=== PATIENT | female | born 1975 | race Two or more races ===

== ENCOUNTER 2020-07-19 19:25 | Inpatient (IN) | payer MEDICAID ==
[~2020-07-19] VITALS: Ht 172.7 cm; Wt 104.0 kg
[2020-07-19 21:29] LABS: Hematocrit 50.6 % (36.0-46.0); Hemoglobin 15.2 g/dL (12.2-16.2); Mean Corpuscular Hemoglobin 29.9 pg (28.0-32.0); Mean Corpuscular Hgb Conc. 30.1 g/dL (32.0-36.0); Mean Corpuscular Volume 99.2 fL (80.0-100.0); Red Cell Distribution Width 20.4 % (11.8-14.3); White Blood Cell 10.5 10^3/uL (4.4-10.8)
[2020-07-19 21:31] LABS: Basophils % (manual) 0 (0.0-2.0); Blast Cells 0; Eosinophils % (manual) 0 (0-7); Metamyelocytes % 0; Myelocytes % 0; Promyelocytes % 0; Reactive Lymphocytes 0
[2020-07-19 21:36] LABS: INR 1.75 (0.9-1.15)
[2020-07-19 21:39] LABS: Albumin 3.1 g/dL (3.4-5.0); Calcium 7.5 mg/dL (8.5-10.1); Magnesium 1.6 mg/dL (1.6-2.6)
[2020-07-19 21:46] LABS: BUN/Creatinine Ratio 12.2; Bilirubin, Total 2.2 mg/dL (0.2-1.0); Total Protein 7.6 g/dL (6.4-8.2)
[2020-07-19 21:49] LABS: Potassium 6.3 mmol/L (3.5-5.1)
[2020-07-19 22:06] LABS: Band Neutrophils % (manual) 1; Lymphocytes % (manual) 13 (10.0-50.0); Monocytes % (manual) 4 (0-12)
[2020-07-19] MEDS ORDERED: CALCIUM GLUC 1,000mg/50ml-NS 50 ML IV ONE (22:15)
[2020-07-19] MEDS ORDERED: SODIUM ZIRCONIUM CYCL 10 GM PAK PO ONE (22:15)
[2020-07-19] MEDS ORDERED: DEXTROSE (50%) 50ML SYRG IV ONE (22:15)
[2020-07-19] MEDS ORDERED: InsuLIN REG 1unit/0.01ml Soln (100units/ml) IV ONE (22:15)
[2020-07-19] MEDS ORDERED: SODIUM BICARBONATE 8.4% INJ 50ML SYRINGE IV ONE (22:15)
[2020-07-19] MEDS ORDERED: FUROSEMIDE 40 MG/4 ML VIAL IV ONE (22:15)
[2020-07-19] MEDS ORDERED: ASPirin 325 MG TAB PO ONE (22:30)
[2020-07-20] VITALS (7 sets, daily range): BP systolic 117–138; BP diastolic 67–104
[2020-07-20 00:02] LABS: Urine Amorphous Crystal FEW /hpf (None Seen); Urine Bacteria MOD /hpf (None Seen); Urine Blood Negative /uL (Negative); Urine Hyaline Cast MANY /lpf (0 - 2); Urine Mucus FEW (None Seen); Urine Specific Gravity 1.015 (1.001-1.035); Urine WBC 6 /hpf (0 - 5)
[2020-07-20] MEDS ORDERED: NITROGLYCERIN 0.4 MG SL TAB SL PRN (00:45)
[2020-07-20] MEDS ORDERED: MORPHINE SULFATE 4 MG/ML SYR/VIAL IV PRN (00:45)
[2020-07-20] MEDS ORDERED: ONDANSETRON HCL 4 MG/2 ML VIAL IV PRN (00:45)
[2020-07-20] MEDS ORDERED: DEXTROSE (50%) 50ML SYRG IV PRN (00:45)
[2020-07-20] MEDS ORDERED: ACETAMINOPHEN 325 MG TAB PO PRN (00:45)
[2020-07-20] MEDS ORDERED: METF-370 PO (02:33)
[2020-07-20] MEDS ORDERED: AMPI500C8 PO (02:34)
[2020-07-20] MEDS ORDERED: ATOR20TA50 PO (02:35)
[2020-07-20] MEDS ORDERED: CHOL20007 OR (02:36)
[2020-07-20] MEDS: ACCU-CHEK COMFORT CURVE STRIP VI SCH ×4 (06:11→21:41)
[2020-07-20] MEDS: InsuLIN REG 1unit/0.01ml Soln (100units/ml) SC SCH ×2 (06:14→12:49)
[2020-07-20] MEDS: FUROSEMIDE 40 MG/4 ML VIAL IV SCH (09:44)
[2020-07-20] MEDS: ENOXAPARIN SOD 60 MG/0.6 ML SYRINGE SC SCH ×2 (09:45→21:41)
[2020-07-20] MEDS: ASPirin 81 mg TAB PO SCH (09:45)
[2020-07-20] MEDS: DOCUSATE SOD 100 MG CAP PO SCH (09:45)
[2020-07-20] MEDS: METOPROLOL TARTRATE 25 MG TAB PO SCH ×2 (09:46→21:43)
[2020-07-20] MEDS: CLOPIDOGREL BISULFATE 75 MG TAB PO SCH (09:47)
[2020-07-20] MEDS ORDERED: ENALAPRIL MALEATE 2.5 MG TAB PO SCH (10:00)
[2020-07-20] MEDS ORDERED: ENOXAPARIN SOD 60 MG/0.6 ML SYRINGE SC SCH (10:00)
[2020-07-20] MEDS: SODIUM BICARBONATE 50ML VIAL 50 ML in SOD CHL 0.45% 1,000 ML IV SCH ×2 (13:19→23:29)
[2020-07-20] MEDS ORDERED: OMNIPAQUE ORAL SOLN 500ml 12mg/ml PO ONE (13:26)
[2020-07-20] MEDS: INSULIN LISPRO (HUMAN) 100 UNITS/ML ML SC SCH (17:00)
[2020-07-20] MEDS: ATORVASTATIN 20 MG TAB PO SCH (21:41)
[2020-07-20] MEDS: INSULIN LANTUS (GLARGINE) 1 /0.01ml (100units/ml) SC SCH (21:41)
[2020-07-21 05:00] VITALS: BP 141/93
[2020-07-21] MEDS: INSULIN LISPRO (HUMAN) 100 UNITS/ML ML SC SCH ×3 (06:27→18:01)
[2020-07-21] MEDS: ACCU-CHEK COMFORT CURVE STRIP VI SCH ×4 (06:27→22:14)
[2020-07-21 07:24] LABS: Basophils # (auto) 0.1 10 ^3/uL (0-0.2); Basophils % (auto) 1.1 % (0.0-2.0); Eosinophils # (auto) 0.1 10 ^3/uL (0-0.8); Hematocrit 39.3 % (36.0-46.0); Hemoglobin 12.8 g/dL (12.2-16.2); Lymphocytes # (auto) 1.3 10 ^3/uL (0.4-5.4); Lymphocytes % (auto) 20.9 % (10.0-50.0); Mean Corpuscular Hemoglobin 29.2 pg (28.0-32.0); Mean Corpuscular Hgb Conc. 32.6 g/dL (32.0-36.0); Mean Corpuscular Volume 89.5 fL (80.0-100.0); Monocytes # (auto) 0.4 10 ^3/uL (0-1.3); Neutrophils # (auto) 4.3 10 ^3/uL (1.6-8.6); Nucleated Red Blood Cells % 0.6 %; Red Blood Cells 4.39 10^6/uL (4.0-5.20); Red Cell Distribution Width 18.8 % (11.8-14.3); White Blood Cell 6.2 10^3/uL (4.4-10.8)
[2020-07-21 07:38] LABS: Calcium 7.9 mg/dL (8.5-10.1); Magnesium 1.3 mg/dL (1.6-2.6)
[2020-07-21 07:45] LABS: BUN/Creatinine Ratio 19.6
[2020-07-21 07:51] LABS: INR 1.46 (0.9-1.15); Partial Thromboplastin Time 28.1 sec (23.0-31.2)
[2020-07-21 08:09] LABS: Potassium 2.9 mmol/L (3.5-5.1)
[2020-07-21 08:26] VITALS: BP 138/99
[2020-07-21] MEDS ORDERED: POTASSIUM CHL 20 Meq TABLET PO ONE (08:45)
[2020-07-21] MEDS ORDERED: POTASSIUM CHL 20MEQ/100ML 100 ML IV ONE (08:45)
[2020-07-21 09:00] VITALS: BP 155/103
[2020-07-21] MEDS: METOPROLOL TARTRATE 25 MG TAB PO SCH ×2 (09:48→22:14)
[2020-07-21] MEDS: CLOPIDOGREL BISULFATE 75 MG TAB PO SCH (09:48)
[2020-07-21] MEDS: ENOXAPARIN SOD 60 MG/0.6 ML SYRINGE SC SCH ×2 (09:48→22:14)
[2020-07-21] MEDS: FUROSEMIDE 40 MG/4 ML VIAL IV SCH (09:49)
[2020-07-21] MEDS: ASPirin 81 mg TAB PO SCH (09:49)
[2020-07-21] MEDS: DOCUSATE SOD 100 MG CAP PO SCH (09:49)
[2020-07-21] MEDS ORDERED: OPTISON 3ml Vial for INJ IV ONE (09:56)
[2020-07-21] MEDS: SODIUM BICARBONATE 50ML VIAL 50 ML in SOD CHL 0.45% 1,000 ML IV SCH (12:22)
[2020-07-21 13:00] VITALS: BP 150/105
[2020-07-21 17:43] VITALS: BP 161/115
[2020-07-21 22:00] VITALS: BP 143/99
[2020-07-21] MEDS: INSULIN LANTUS (GLARGINE) 1 /0.01ml (100units/ml) SC SCH (22:14)
[2020-07-21] MEDS: ATORVASTATIN 20 MG TAB PO SCH (22:14)
[2020-07-21] MEDS: ZOLPIDEM TARTRATE 5 MG TAB PO PRN (22:30)
[2020-07-22] MEDS: hydrALAZINE HCL 20 MG/ML VL IV PRN ×2 (04:57→17:34)
[2020-07-22 05:00] VITALS: BP 166/110
[2020-07-22 06:20] LABS: Basophils # (auto) 0.1 10 ^3/uL (0-0.2); Basophils % (auto) 1.1 % (0.0-2.0); Eosinophils # (auto) 0.1 10 ^3/uL (0-0.8); Eosinophils % (auto) 1.4 % (0.0-7.0); Hematocrit 40.8 % (36.0-46.0); Hemoglobin 13.4 g/dL (12.2-16.2); Lymphocytes # (auto) 1.3 10 ^3/uL (0.4-5.4); Lymphocytes % (auto) 23.2 % (10.0-50.0); Mean Corpuscular Hemoglobin 29.5 pg (28.0-32.0); Mean Corpuscular Hgb Conc. 32.7 g/dL (32.0-36.0); Mean Corpuscular Volume 90.2 fL (80.0-100.0); Monocytes # (auto) 0.4 10 ^3/uL (0-1.3); Monocytes % (auto) 7.3 % (0.0-12.0); Neutrophils # (auto) 3.8 10 ^3/uL (1.6-8.6); Nucleated Red Blood Cells % 0.8 %; Red Blood Cells 4.53 10^6/uL (4.0-5.20); Red Cell Distribution Width 19.2 % (11.8-14.3); White Blood Cell 5.6 10^3/uL (4.4-10.8)
[2020-07-22 06:38] LABS: Calcium 8.1 mg/dL (8.5-10.1); Potassium 3.1 mmol/L (3.5-5.1)
[2020-07-22 06:39] LABS: BUN/Creatinine Ratio 18.7
[2020-07-22] MEDS: ACCU-CHEK COMFORT CURVE STRIP VI SCH ×4 (07:00→22:01)
[2020-07-22] MEDS: INSULIN LISPRO (HUMAN) 100 UNITS/ML ML SC SCH ×3 (07:01→17:51)
[2020-07-22 08:41] VITALS: BP 153/108
[2020-07-22] MEDS: ASPirin 81 mg TAB PO SCH (09:39)
[2020-07-22] MEDS: FUROSEMIDE 40 MG/4 ML VIAL IV SCH (09:39)
[2020-07-22] MEDS: DOCUSATE SOD 100 MG CAP PO SCH (09:39)
[2020-07-22] MEDS: ENOXAPARIN SOD 60 MG/0.6 ML SYRINGE SC SCH (09:40)
[2020-07-22] MEDS: CLOPIDOGREL BISULFATE 75 MG TAB PO SCH (09:40)
[2020-07-22] MEDS: METOPROLOL TARTRATE 25 MG TAB PO SCH ×2 (09:40→22:09)
[2020-07-22] MEDS ORDERED: ENOXAPARIN SOD 40 MG/0.4 ML SYRINGE SC ONE (11:45)
[2020-07-22 13:11] VITALS: BP 163/111
[2020-07-22 16:39] VITALS: BP 156/115
[2020-07-22] MEDS: LORazepam 0.5 MG TAB PO PRN (17:54)
[2020-07-22 22:00] VITALS: BP 166/107
[2020-07-22] MEDS: ENOXAPARIN SOD 100 MG/1 ML SYRINGE SC SCH (22:08)
[2020-07-22] MEDS: ATORVASTATIN 20 MG TAB PO SCH (22:08)
[2020-07-22] MEDS: INSULIN LANTUS (GLARGINE) 1 /0.01ml (100units/ml) SC SCH (22:10)
[2020-07-22] MEDS: ZOLPIDEM TARTRATE 5 MG TAB PO PRN (22:11)
[2020-07-23 05:00] VITALS: BP 149/106
[2020-07-23] MEDS: ACCU-CHEK COMFORT CURVE STRIP VI SCH ×4 (06:21→22:00)
[2020-07-23] MEDS: INSULIN LISPRO (HUMAN) 100 UNITS/ML ML SC SCH ×3 (06:26→17:34)
[2020-07-23 09:00] VITALS: BP 167/118
[2020-07-23] MEDS: ENOXAPARIN SOD 100 MG/1 ML SYRINGE SC SCH ×2 (09:39→21:41)
[2020-07-23] MEDS: ASPirin 81 mg TAB PO SCH (09:39)
[2020-07-23] MEDS: FUROSEMIDE 40 MG/4 ML VIAL IV SCH (09:39)
[2020-07-23] MEDS: DOCUSATE SOD 100 MG CAP PO SCH (09:39)
[2020-07-23] MEDS: METOPROLOL TARTRATE 25 MG TAB PO SCH ×2 (09:39→21:41)
[2020-07-23] MEDS: hydrALAZINE HCL 20 MG/ML VL IV PRN (09:40)
[2020-07-23 13:00] VITALS: BP 137/86
[2020-07-23] MEDS ORDERED: POTASSIUM CHL 20 Meq TABLET PO ONE (15:30)
[2020-07-23 16:36] LABS: BUN/Creatinine Ratio 16.7; Calcium 8.1 mg/dL (8.5-10.1); Potassium 3.2 mmol/L (3.5-5.1)
[2020-07-23 17:00] VITALS: BP 135/98
[2020-07-23] MEDS: amLODIPine BESYLATE 5 MG TAB PO SCH (17:35)
[2020-07-23] MEDS: ATORVASTATIN 20 MG TAB PO SCH (21:39)
[2020-07-23] MEDS: ZOLPIDEM TARTRATE 5 MG TAB PO PRN (21:42)
[2020-07-23 22:00] VITALS: BP 158/110
[2020-07-23] MEDS: INSULIN LANTUS (GLARGINE) 1 /0.01ml (100units/ml) SC SCH (22:02)
[2020-07-23] MEDS: LORazepam 0.5 MG TAB PO PRN (23:28)
[2020-07-24 05:00] VITALS: BP 154/112
[2020-07-24] MEDS: ACCU-CHEK COMFORT CURVE STRIP VI SCH ×3 (06:13→17:00)
[2020-07-24] MEDS: INSULIN LISPRO (HUMAN) 100 UNITS/ML ML SC SCH ×3 (06:15→19:00)
[2020-07-24] MEDS: hydrALAZINE HCL 20 MG/ML VL IV PRN (06:17)
[2020-07-24 07:13] LABS: Basophils # (auto) 0.1 10 ^3/uL (0-0.2); Basophils % (auto) 1.5 % (0.0-2.0); Eosinophils # (auto) 0.1 10 ^3/uL (0-0.8); Eosinophils % (auto) 1.3 % (0.0-7.0); Hematocrit 41.7 % (36.0-46.0); Hemoglobin 13.5 g/dL (12.2-16.2); Lymphocytes # (auto) 1.5 10 ^3/uL (0.4-5.4); Lymphocytes % (auto) 23.7 % (10.0-50.0); Mean Corpuscular Hemoglobin 28.6 pg (28.0-32.0); Mean Corpuscular Hgb Conc. 32.5 g/dL (32.0-36.0); Mean Corpuscular Volume 88.1 fL (80.0-100.0); Monocytes # (auto) 0.5 10 ^3/uL (0-1.3); Neutrophils % (auto) 65.5 % (37.0-80.0); Nucleated Red Blood Cells % 0.2 %; Red Blood Cells 4.73 10^6/uL (4.0-5.20); Red Cell Distribution Width 18.8 % (11.8-14.3); White Blood Cell 6.2 10^3/uL (4.4-10.8)
[2020-07-24 07:26] LABS: INR 1.33 (0.9-1.15); Partial Thromboplastin Time 29.8 sec (23.0-31.2)
[2020-07-24 07:44] LABS: BUN/Creatinine Ratio 22.4; Calcium 7.9 mg/dL (8.5-10.1); Potassium 3.4 mmol/L (3.5-5.1)
[2020-07-24 08:10] VITALS: BP 156/101
[2020-07-24 08:50] VITALS: BP 151/100
[2020-07-24] MEDS ORDERED: LIDOCAINE 2%HCL (LOCAL ANESTH.) INJ 20ML MDV ONE (09:54)
[2020-07-24] MEDS ORDERED: IODIXANOL 320MG/ML 100ML BTL IV ONE (09:54)
[2020-07-24] MEDS ORDERED: ANGIOMAX 250 MG VIAL IV ONE (10:16)
[2020-07-24] MEDS ORDERED: HEPARIN SODIUM (PORCINE) 5000 UNITS/ML 1ML VIAL ONE (10:16)
[2020-07-24] MEDS ORDERED: VERAPAMIL 2.5MG/ML INJ 2ML VIAL IV ONE (10:16)
[2020-07-24] MEDS ORDERED: fentaNYL CITRATE 100 MCG/2 ML VL ONE (10:16)
[2020-07-24] MEDS ORDERED: SODIUM CHL 0.9% 0 ML ONE (10:17)
[2020-07-24] MEDS ORDERED: MIDAZOLAM HCL 2MG/2ML 2ml VIAL (1mg/ml) ONE (10:17)
[2020-07-24] MEDS: FUROSEMIDE 40 MG/4 ML VIAL IV SCH (12:15)
[2020-07-24] MEDS: DOCUSATE SOD 100 MG CAP PO SCH (12:15)
[2020-07-24] MEDS: METOPROLOL TARTRATE 25 MG TAB PO SCH (12:15)
[2020-07-24] MEDS: ASPirin 81 mg TAB PO SCH (12:15)
[2020-07-24 12:30] VITALS: BP 143/102
[2020-07-24] MEDS ORDERED: INSU100I43 SC (16:56)
[2020-07-24] MEDS ORDERED: ASPI1CHW15 PO (16:56)
[2020-07-24] MEDS ORDERED: MET25T PO (16:56)
[2020-07-24] MEDS ORDERED: INSLANTI SC (16:56)
[2020-07-24] MEDS ORDERED: SPIR25TA PO (16:56)
[2020-07-24 17:00] VITALS: BP 149/113
[2020-07-24 17:33] VITALS: BP 149/113
[2020-07-24] MEDS: amLODIPine BESYLATE 5 MG TAB PO SCH (19:04)
[2020-07-27] MEDS ORDERED: APIX5TAB PO (10:02)
== END 2020-07-24 19:06 | disposition home or self-care (01) | DRG 192 ==
LOC: EDBD 19:25 → EDSEX 19:31 → ER 19:31 → TELE 07-20 00:32 → TELE-EAST 07-20 01:45
PROVIDERS: ADMIT Hospitalist; ATTEND Hospitalist
PROC: 4A023N7 Measurement of Cardiac Sampling and Pressure, Left Heart, Percutaneous Approach (ICD-10-PCS; principal; 2020-07-24)
PROC: B211YZZ Fluoroscopy of Multiple Coronary Arteries using Other Contrast (ICD-10-PCS; 2020-07-24)
DX: I13.0 Hypertensive heart and chronic kidney disease with heart failure and stage 1 through stage 4 chronic kidney disease, or unspecified chronic kidney disease (principal); I21.4 Non-ST elevation (NSTEMI) myocardial infarction; N17.0 Acute kidney failure with tubular necrosis; I50.21 Acute systolic (congestive) heart failure; E87.5 Hyperkalemia; E66.01 Morbid (severe) obesity due to excess calories; K21.9 Gastro-esophageal reflux disease without esophagitis; N18.31 Chronic kidney disease, stage 3a; E10.22 Type 1 diabetes mellitus with diabetic chronic kidney disease; E10.65 Type 1 diabetes mellitus with hyperglycemia; E78.5 Hyperlipidemia, unspecified; Z82.49 Family history of ischemic heart disease and other diseases of the circulatory system; Z87.440 Personal history of urinary (tract) infections; Z83.3 Family history of diabetes mellitus; Z68.34 Body mass index [BMI] 34.0-34.9, adult; Z20.822 Contact with and (suspected) exposure to COVID-19; Z88.0 Allergy status to penicillin
CPT/HCPCS: 36415; 71045; 71250; 74176; 76775; 78582; 80048; 80053; 80061; 81001; 81025; 82962; 83036; 83735; 83880; 84132; 84484; 85007; 85025; 85027; 85610; 85730; 86850; 86900; 86901; 87426; 93005; 93306; 93458; 93970; 96365; 96375; 99152; G0378; J1815; J2250; J3480; Q9956; Q9967

== ENCOUNTER 2020-09-04 21:24 | Inpatient (IN) | payer MEDICAID ==
[~2020-09-04] VITALS: Ht 172.7 cm; Wt 94.7 kg
[~2020-09-04 21:24] MED LIST: APIX5TAB PO; ASPI1CHW15 PO; ATOR20TA50 PO; CHOL20007 OR; INSLANTI SC; INSU100I43 SC; MET25T PO; METF-370 PO; SPIR25TA PO
[2020-09-04 22:27] LABS: Basophils # (auto) 0.1 10 ^3/uL (0-0.2); Eosinophils # (auto) 0 10 ^3/uL (0-0.8); Eosinophils % (auto) 0.5 % (0.0-7.0); Hematocrit 48.4 % (36.0-46.0); Hemoglobin 16.2 g/dL (12.2-16.2); Lymphocytes # (auto) 1.3 10 ^3/uL (0.4-5.4); Lymphocytes % (auto) 15.9 % (10.0-50.0); Mean Corpuscular Hemoglobin 29.2 pg (28.0-32.0); Mean Corpuscular Hgb Conc. 33.4 g/dL (32.0-36.0); Mean Corpuscular Volume 87.6 fL (80.0-100.0); Monocytes # (auto) 0.4 10 ^3/uL (0-1.3); Neutrophils # (auto) 6.2 10 ^3/uL (1.6-8.6); Neutrophils % (auto) 77.6 % (37.0-80.0); Nucleated Red Blood Cells % 0.1 %; Red Blood Cells 5.52 10^6/uL (4.0-5.20); Red Cell Distribution Width 18.5 % (11.8-14.3)
[2020-09-04 22:46] LABS: Albumin 3.2 g/dL (3.4-5.0); Calcium 9.6 mg/dL (8.5-10.1); Potassium 4.6 mmol/L (3.5-5.1)
[2020-09-04 22:51] LABS: BUN/Creatinine Ratio 15.4; Bilirubin, Total 1.9 mg/dL (0.2-1.0); Total Protein 8.2 g/dL (6.4-8.2)
[2020-09-05] MEDS ORDERED: FUROSEMIDE 40 MG/4 ML VIAL IV ONE (00:30)
[2020-09-05] MEDS ORDERED: MORPHINE SULFATE INJECTION 2 MG/ML SYRG IV ONE (01:00)
[2020-09-05] MEDS ORDERED: ONDANSETRON HCL 4 MG/2 ML VIAL IV ONE (01:00)
[2020-09-05 01:48] LABS: Urine Bacteria NONE SEEN /hpf (None Seen); Urine Blood Negative /uL (Negative); Urine Hyaline Cast MOD /lpf (0 - 2); Urine Specific Gravity 1.014 (1.001-1.035); Urine WBC 20 /hpf (0 - 5)
[2020-09-05] MEDS ORDERED: cefTRIAXone 1GM/50ML D5W 50 ML IV ONE (03:00)
[2020-09-05] MEDS ORDERED: DEXTROSE (50%) 50ML SYRG IV PRN (04:00)
[2020-09-05] MEDS ORDERED: NITROGLYCERIN 0.4 MG SL TAB SL PRN (04:00)
[2020-09-05] MEDS ORDERED: MORPHINE SULFATE INJECTION 2 MG/ML SYRG IV PRN (04:00)
[2020-09-05] MEDS ORDERED: hydrALAZINE HCL 20 MG/ML VL IV PRN (06:15)
[2020-09-05] MEDS: MORPHINE SULFATE INJECTION 2 MG/ML SYRG IV PRN ×3 (06:30→22:30)
[2020-09-05 06:43] LABS: Basophils # (auto) 0.1 10 ^3/uL (0-0.2); Basophils % (auto) 1.3 % (0.0-2.0); Eosinophils # (auto) 0.1 10 ^3/uL (0-0.8); Eosinophils % (auto) 0.9 % (0.0-7.0); Hematocrit 45.1 % (36.0-46.0); Hemoglobin 15.3 g/dL (12.2-16.2); Lymphocytes # (auto) 1.9 10 ^3/uL (0.4-5.4); Lymphocytes % (auto) 24.2 % (10.0-50.0); Mean Corpuscular Hemoglobin 29.3 pg (28.0-32.0); Mean Corpuscular Hgb Conc. 33.9 g/dL (32.0-36.0); Mean Corpuscular Volume 86.5 fL (80.0-100.0); Monocytes # (auto) 0.6 10 ^3/uL (0-1.3); Monocytes % (auto) 7.4 % (0.0-12.0); Neutrophils # (auto) 5.1 10 ^3/uL (1.6-8.6); Neutrophils % (auto) 66.2 % (37.0-80.0); Nucleated Red Blood Cells % 0.1 %; Red Blood Cells 5.21 10^6/uL (4.0-5.20); Red Cell Distribution Width 18.6 % (11.8-14.3); White Blood Cell 7.7 10^3/uL (4.4-10.8)
[2020-09-05] MEDS: ACCU-CHEK COMFORT CURVE STRIP VI SCH ×4 (07:00→21:29)
[2020-09-05] MEDS: InsuLIN REG 1unit/0.01ml Soln (100units/ml) SC SCH ×4 (07:40→21:30)
[2020-09-05] MEDS: INSULIN LANTUS (GLARGINE) 1 /0.01ml (100units/ml) SC SCH ×2 (07:50→17:30)
[2020-09-05 09:24] VITALS: BP 159/108
[2020-09-05] MEDS: SPIRONOLACTONE 25 MG TAB PO SCH (09:40)
[2020-09-05] MEDS: METOPROLOL TARTRATE 25 MG TAB PO SCH ×2 (09:40→21:31)
[2020-09-05] MEDS: ASPirin 81 mg TAB PO SCH (09:40)
[2020-09-05 10:14] LABS: BUN/Creatinine Ratio 15.3; Calcium 9.6 mg/dL (8.5-10.1)
[2020-09-05] MEDS ORDERED: diphenhdrAMINE HCL 50 MG/1 ML VL IV PRN (11:00)
[2020-09-05 12:13] LABS: Alcohol, Urine < 3.0 mg/dL (0-10); Barbiturate Scree,Urine NEGATIVE (NEGATIVE); Benzodiazephine Screen, Urine NEGATIVE (NEGATIVE); Cannabinoid Screen, Urine POSITIVE (NEGATIVE); Cocaine Screen, Urine NEGATIVE (NEGATIVE); Opiate Scree,Urine NEGATIVE (NEGATIVE); Phencyclidine Screen, Urine NEGATIVE (NEGATIVE)
[2020-09-05 12:21] LABS: Amphetamine Screen, Urine POSITIVE (NEGATIVE)
[2020-09-05 12:27] VITALS: BP 159/108
[2020-09-05 13:00] VITALS: BP 153/107
[2020-09-05 17:00] VITALS: BP 143/108
[2020-09-05] MEDS: ATORVASTATIN 20 MG TAB PO SCH (21:13)
[2020-09-05] MEDS: SODIUM BICARBONATE 650 MG TAB PO SCH (21:13)
[2020-09-05] MEDS: APIXABAN 5 MG TAB PO SCH (21:14)
[2020-09-05 22:00] VITALS: BP 143/102
[2020-09-05] MEDS ORDERED: ENOXAPARIN SOD 40 MG/0.4 ML SYRINGE SC SCH (22:00)
[2020-09-06] MEDS: MORPHINE SULFATE INJECTION 2 MG/ML SYRG IV PRN ×3 (03:35→12:35)
[2020-09-06 05:00] VITALS: BP 134/100
[2020-09-06] MEDS: ACCU-CHEK COMFORT CURVE STRIP VI SCH ×4 (06:20→22:03)
[2020-09-06] MEDS: INSULIN LANTUS (GLARGINE) 1 /0.01ml (100units/ml) SC SCH ×2 (06:22→17:17)
[2020-09-06] MEDS: InsuLIN REG 1unit/0.01ml Soln (100units/ml) SC SCH ×4 (06:23→22:04)
[2020-09-06] MEDS: ASPirin 81 mg TAB PO SCH (07:44)
[2020-09-06] MEDS: SODIUM BICARBONATE 650 MG TAB PO SCH ×2 (07:44→21:49)
[2020-09-06] MEDS: APIXABAN 5 MG TAB PO SCH ×2 (07:44→21:49)
[2020-09-06] MEDS: SPIRONOLACTONE 25 MG TAB PO SCH (07:45)
[2020-09-06 08:00] VITALS: BP 154/95
[2020-09-06 09:00] VITALS: BP 154/95
[2020-09-06 10:22] LABS: Calcium 8.6 mg/dL (8.5-10.1); Potassium 4.4 mmol/L (3.5-5.1)
[2020-09-06 10:25] LABS: BUN/Creatinine Ratio 18.4
[2020-09-06 13:00] VITALS: BP 120/92
[2020-09-06] MEDS: METOPROLOL TARTRATE 25 MG TAB PO SCH ×2 (16:53→22:03)
[2020-09-06] MEDS: FUROSEMIDE 40 MG/4 ML VIAL IV SCH (16:53)
[2020-09-06 17:00] VITALS: BP 129/75
[2020-09-06] MEDS: HYDROcodone-ACET 5/325MG TAB PO PRN ×2 (17:00→21:49)
[2020-09-06] MEDS: levoFLOXacin 500MG 100 ML IV SCH (17:17)
[2020-09-06] MEDS: ATORVASTATIN 20 MG TAB PO SCH (21:49)
[2020-09-06 22:00] VITALS: BP 128/104
[2020-09-07] MEDS: HYDROcodone-ACET 5/325MG TAB PO PRN ×2 (04:08→10:30)
[2020-09-07 06:03] LABS: BUN/Creatinine Ratio 22.2; Calcium 9.1 mg/dL (8.5-10.1); Potassium 4.5 mmol/L (3.5-5.1)
[2020-09-07] MEDS: ACCU-CHEK COMFORT CURVE STRIP VI SCH ×3 (06:36→17:00)
[2020-09-07] MEDS: INSULIN LANTUS (GLARGINE) 1 /0.01ml (100units/ml) SC SCH ×2 (06:37→17:00)
[2020-09-07] MEDS: InsuLIN REG 1unit/0.01ml Soln (100units/ml) SC SCH ×3 (06:38→17:00)
[2020-09-07 09:00] VITALS: BP 122/94
[2020-09-07] MEDS: FUROSEMIDE 40 MG/4 ML VIAL IV SCH (10:12)
[2020-09-07] MEDS: levoFLOXacin 500MG 100 ML IV SCH (10:12)
[2020-09-07] MEDS: ASPirin 81 mg TAB PO SCH (10:13)
[2020-09-07] MEDS: METOPROLOL TARTRATE 25 MG TAB PO SCH (10:13)
[2020-09-07] MEDS: SPIRONOLACTONE 25 MG TAB PO SCH (10:13)
[2020-09-07] MEDS: SODIUM BICARBONATE 650 MG TAB PO SCH (10:13)
[2020-09-07] MEDS: APIXABAN 5 MG TAB PO SCH (10:13)
[2020-09-07 14:32] VITALS: BP 122/72
== END 2020-09-07 16:30 | disposition home or self-care (01) | DRG 194 ==
LOC: ER 21:26 → TELE 09-05 04:07 → TELE-WESTW 09-05 08:55
PROVIDERS: ADMIT Hospitalist; ATTEND Hospitalist
DX: I13.0 Hypertensive heart and chronic kidney disease with heart failure and stage 1 through stage 4 chronic kidney disease, or unspecified chronic kidney disease (principal); N17.0 Acute kidney failure with tubular necrosis; E87.2 Acidosis; E11.22 Type 2 diabetes mellitus with diabetic chronic kidney disease; E66.01 Morbid (severe) obesity due to excess calories; I50.31 Acute diastolic (congestive) heart failure; N30.01 Acute cystitis with hematuria; R33.9 Retention of urine, unspecified; Z20.822 Contact with and (suspected) exposure to COVID-19; N18.2 Chronic kidney disease, stage 2 (mild); R39.15 Urgency of urination; I25.10 Atherosclerotic heart disease of native coronary artery without angina pectoris; I25.2 Old myocardial infarction; Z79.01 Long term (current) use of anticoagulants; Z79.4 Long term (current) use of insulin; Z82.49 Family history of ischemic heart disease and other diseases of the circulatory system; Z83.3 Family history of diabetes mellitus; Z79.899 Other long term (current) drug therapy; Z88.0 Allergy status to penicillin; Z68.31 Body mass index [BMI] 31.0-31.9, adult
CPT/HCPCS: 36415; 71045; 74176; 80048; 80053; 80307; 81001; 82962; 83690; 83880; 84484; 85025; 85049; 87086; 87426; 93005; 96365; 96366; 96375; G0378; J0696; J1815; J1956; J2405

== ENCOUNTER 2021-06-14 21:03 | Inpatient (IN) | payer MEDICAID ==
[~2021-06-14] VITALS: Ht 172.7 cm; Wt 106.2 kg
[2021-06-14 21:55] LABS: Basophils # (auto) 0.1 10 ^3/uL (0-0.2); Basophils % (auto) 1.3 % (0.0-2.0); Eosinophils # (auto) 0.2 10 ^3/uL (0-0.8); Eosinophils % (auto) 2.4 % (0.0-7.0); Hematocrit 52.3 % (36.0-46.0); Hemoglobin 17.1 g/dL (12.2-16.2); Lymphocytes # (auto) 1.1 10 ^3/uL (0.4-5.4); Lymphocytes % (auto) 18.2 % (10.0-50.0); Mean Corpuscular Hemoglobin 28.9 pg (28.0-32.0); Mean Corpuscular Hgb Conc. 32.8 g/dL (32.0-36.0); Mean Corpuscular Volume 88.1 fL (80.0-100.0); Monocytes # (auto) 0.3 10 ^3/uL (0-1.3); Monocytes % (auto) 5.2 % (0.0-12.0); Neutrophils # (auto) 4.5 10 ^3/uL (1.6-8.6); Neutrophils % (auto) 72.9 % (37.0-80.0); Nucleated Red Blood Cells % 0.1 %; Red Blood Cells 5.93 10^6/uL (4.0-5.20); Red Cell Distribution Width 20.4 % (11.8-14.3); White Blood Cell 6.2 10^3/uL (4.4-10.8)
[2021-06-14 22:09] LABS: Albumin 3.2 g/dL (3.4-5.0); Calcium 9.1 mg/dL (8.5-10.1); Magnesium 1.7 mg/dL (1.6-2.6); Potassium 4.5 mmol/L (3.5-5.1)
[2021-06-14 22:11] LABS: BUN/Creatinine Ratio 12.9
[2021-06-14 22:14] LABS: Bilirubin, Total 1.8 mg/dL (0.2-1.0); Total Protein 7.6 g/dL (6.4-8.2)
[2021-06-15] VITALS (7 sets, daily range): BP systolic 133–161; BP diastolic 95–113
[2021-06-15] MEDS ORDERED: cefTRIAXone 1GM/50ML D5W 50 ML IV ONE
[2021-06-15] MEDS ORDERED: ASPirin 81 mg TAB PO ONE
[2021-06-15] MEDS ORDERED: ENOXAPARIN SOD 100 MG/1 ML SYRINGE SC ONE
[2021-06-15] MEDS ORDERED: CLINDAMYCIN 600MG IV 50 ML IV ONE
[2021-06-15 01:31] LABS: Lactic Acid w/Reflex 2.9 mmol/L (0.4-2.0)
[2021-06-15] MEDS ORDERED: DEXTROSE (50%) 50ML SYRG IV PRN (01:45)
[2021-06-15] MEDS ORDERED: ONDANSETRON HCL 4 MG/2 ML VIAL IV PRN (01:45)
[2021-06-15] MEDS ORDERED: MORPHINE SULFATE INJECTION 2 MG/ML SYRG IV PRN (01:45)
[2021-06-15] MEDS ORDERED: NITROGLYCERIN 0.4 MG SL TAB SL PRN (01:45)
[2021-06-15] MEDS ORDERED: hydrALAZINE HCL 20 MG/ML VL IV PRN (03:00)
[2021-06-15] MEDS ORDERED: traMADol HCL 50 MG TAB PO PRN (03:00)
[2021-06-15] MEDS: hydrALAZINE HCL 20 MG/ML VL IV PRN (03:37)
[2021-06-15] MEDS: traMADol HCL 50 MG TAB PO PRN ×3 (03:38→21:53)
[2021-06-15] MEDS: ACCU-CHEK COMFORT CURVE STRIP VI SCH ×4 (06:32→23:40)
[2021-06-15] MEDS: InsuLIN REG 1unit/0.01ml Soln (100units/ml) SC SCH ×4 (06:33→22:00)
[2021-06-15 07:35] LABS: Basophils # (auto) 0.1 10 ^3/uL (0-0.2); Basophils % (auto) 1.5 % (0.0-2.0); Eosinophils # (auto) 0.2 10 ^3/uL (0-0.8); Eosinophils % (auto) 2.5 % (0.0-7.0); Hematocrit 50.6 % (36.0-46.0); Hemoglobin 16.7 g/dL (12.2-16.2); Lymphocytes # (auto) 1.5 10 ^3/uL (0.4-5.4); Mean Corpuscular Hemoglobin 28.8 pg (28.0-32.0); Mean Corpuscular Volume 87.3 fL (80.0-100.0); Monocytes # (auto) 0.4 10 ^3/uL (0-1.3); Monocytes % (auto) 5.2 % (0.0-12.0); Neutrophils # (auto) 5.3 10 ^3/uL (1.6-8.6); Neutrophils % (auto) 70.8 % (37.0-80.0); Nucleated Red Blood Cells % 0.2 %; Red Cell Distribution Width 19.9 % (11.8-14.3); White Blood Cell 7.5 10^3/uL (4.4-10.8)
[2021-06-15 07:49] LABS: BUN/Creatinine Ratio 15.3; Calcium 9.1 mg/dL (8.5-10.1)
[2021-06-15 08:16] LABS: Potassium 4.2 mmol/L (3.5-5.1)
[2021-06-15] MEDS: SPIRONOLACTONE 25 MG TAB PO SCH (09:52)
[2021-06-15] MEDS: ASPirin-EC 81 mg tab PO SCH (09:52)
[2021-06-15] MEDS: METOPROLOL TARTRATE 25 MG TAB PO SCH ×2 (09:53→21:52)
[2021-06-15] MEDS ORDERED: APIXABAN 5 MG TAB PO SCH (10:00)
[2021-06-15] MEDS ORDERED: FLUO-125 PO (11:34)
[2021-06-15] MEDS ORDERED: GABA100C9 PO (11:34)
[2021-06-15] MEDS ORDERED: FURO40TA4 PO (11:34)
[2021-06-15] MEDS ORDERED: ALPR0.5T7 PO (11:34)
[2021-06-15] MEDS ORDERED: METF-370 PO (11:34)
[2021-06-15] MEDS ORDERED: LISI2.5T47 PO (11:34)
[2021-06-15] MEDS: DOXYCYCLINE 100 MG TAB/CAP PO SCH (21:53)
[2021-06-15] MEDS ORDERED: ATORVASTATIN 20 MG TAB PO SCH (22:00)
[2021-06-16] MEDS: hydrALAZINE HCL 20 MG/ML VL IV PRN (04:57)
[2021-06-16] MEDS: traMADol HCL 50 MG TAB PO PRN (05:00)
[2021-06-16 05:30] VITALS: BP 161/112
[2021-06-16] MEDS: ACCU-CHEK COMFORT CURVE STRIP VI SCH ×2 (06:43→11:20)
[2021-06-16] MEDS: InsuLIN REG 1unit/0.01ml Soln (100units/ml) SC SCH ×2 (06:44→11:20)
[2021-06-16 08:00] VITALS: BP 124/74
[2021-06-16 09:00] VITALS: BP 136/98
[2021-06-16] MEDS: SPIRONOLACTONE 25 MG TAB PO SCH (09:54)
[2021-06-16] MEDS: ASPirin-EC 81 mg tab PO SCH (09:54)
[2021-06-16] MEDS: METOPROLOL TARTRATE 25 MG TAB PO SCH (09:55)
[2021-06-16] MEDS: DOXYCYCLINE 100 MG TAB/CAP PO SCH (09:55)
[2021-06-16] MEDS ORDERED: DOXY-286 PO (09:58)
== END 2021-06-16 11:42 | disposition home or self-care (01) | DRG 203 ==
LOC: ER 21:03 → TELE 06-15 01:32 → TELE-WESTW 06-15 03:38
PROVIDERS: ADMIT Hospitalist; ATTEND Hospitalist
DX: R07.89 Other chest pain (principal); I27.20 Pulmonary hypertension, unspecified; I13.0 Hypertensive heart and chronic kidney disease with heart failure and stage 1 through stage 4 chronic kidney disease, or unspecified chronic kidney disease; E11.22 Type 2 diabetes mellitus with diabetic chronic kidney disease; I50.9 Heart failure, unspecified; F41.9 Anxiety disorder, unspecified; S81.802A Unspecified open wound, left lower leg, initial encounter; S81.801A Unspecified open wound, right lower leg, initial encounter; X58.XXXA Exposure to other specified factors, initial encounter; Z20.822 Contact with and (suspected) exposure to COVID-19; N18.9 Chronic kidney disease, unspecified; E66.9 Obesity, unspecified; Z79.01 Long term (current) use of anticoagulants; Z79.4 Long term (current) use of insulin; Z86.718 Personal history of other venous thrombosis and embolism; Z68.35 Body mass index [BMI] 35.0-35.9, adult; Z88.0 Allergy status to penicillin; Y93.89 Activity, other specified; Y92.89 Other specified places as the place of occurrence of the external cause; Y99.8 Other external cause status
CPT/HCPCS: 36415; 71045; 80048; 80053; 82962; 83605; 83735; 83880; 84484; 85025; 87040; 93005; 93306; 93970; 96365; 96368; 96372; 96375; 99291; G0378; J0696; J1815; J3490

== ENCOUNTER 2021-09-22 15:05 | Emergency (ER) | payer MEDICAID ==
[~2021-09-22] VITALS: Ht 160 cm; Wt 109.0 kg
[~2021-09-22 15:05] MED LIST changes: +ALPR0.5T7 PO; +DOXY-286 PO; +FLUO-125 PO; +FURO40TA4 PO; +GABA100C9 PO; +LISI2.5T47 PO
[2021-09-22 15:19] VITALS: BP 150/95
[2021-09-22 15:59] LABS: Basophils # (auto) 0.1 10 ^3/uL (0-0.2); Eosinophils # (auto) 0 10 ^3/uL (0-0.8); Eosinophils % (auto) 0.2 % (0.0-7.0); Hematocrit 46.9 % (36.0-46.0); Lymphocytes % (auto) 10.7 % (10.0-50.0); Mean Corpuscular Hemoglobin 28.9 pg (28.0-32.0); Mean Corpuscular Hgb Conc. 31.9 g/dL (32.0-36.0); Mean Corpuscular Volume 90.5 fL (80.0-100.0); Monocytes # (auto) 0.9 10 ^3/uL (0-1.3); Monocytes % (auto) 9.2 % (0.0-12.0); Neutrophils # (auto) 7.4 10 ^3/uL (1.6-8.6); Neutrophils % (auto) 78.9 % (37.0-80.0); Nucleated Red Blood Cells % 0.1 %; Red Blood Cells 5.19 10^6/uL (4.0-5.20); White Blood Cell 9.4 10^3/uL (4.4-10.8)
[2021-09-22 16:00] LABS: Red Cell Distribution Width 20.9 % (11.8-14.3)
[2021-09-22 16:13] LABS: INR 1.36 (0.9-1.15); Partial Thromboplastin Time 31.1 sec (24.6-33.4)
[2021-09-22 16:19] LABS: Albumin 3.4 g/dL (3.4-5.0); BUN/Creatinine Ratio 20.3; Magnesium 1.7 mg/dL (1.6-2.6); Potassium 4.2 mmol/L (3.5-5.1)
[2021-09-22 16:22] LABS: Bilirubin, Total 4.8 mg/dL (0.2-1.0); Total Protein 6.9 g/dL (6.4-8.2)
== END 2021-09-22 20:15 | disposition left against medical advice (07) ==
LOC: EDBD 15:05 → ER 15:05
DX: R53.1 Weakness (principal); Z53.21 Procedure and treatment not carried out due to patient leaving prior to being seen by health care provider
CPT/HCPCS: 36415; 71045; 80053; 83605; 83735; 83880; 84484; 85025; 85610; 85730; 87040; 93005

== ENCOUNTER 2022-04-13 22:00 | Emergency (ER) | payer MEDICAID ==
[~2022-04-13] VITALS: Ht 172.7 cm; Wt 97.0 kg
[2022-04-13 22:50] VITALS: BP 120/81
[2022-04-13 23:27] LABS: Basophils # (auto) 0.1 10 ^3/uL (0-0.2); Basophils % (auto) 0.8 % (0.0-2.0); Eosinophils # (auto) 0.1 10 ^3/uL (0-0.8); Eosinophils % (auto) 0.9 % (0.0-7.0); Hematocrit 52.8 % (36.0-46.0); Hemoglobin 17.4 g/dL (12.2-16.2); Lymphocytes # (auto) 1.5 10 ^3/uL (0.4-5.4); Lymphocytes % (auto) 20.1 % (10.0-50.0); Mean Corpuscular Hemoglobin 30.6 pg (28.0-32.0); Mean Corpuscular Volume 92.8 fL (80.0-100.0); Monocytes # (auto) 0.6 10 ^3/uL (0-1.3); Monocytes % (auto) 7.7 % (0.0-12.0); Neutrophils # (auto) 5.1 10 ^3/uL (1.6-8.6); Neutrophils % (auto) 70.5 % (37.0-80.0); Nucleated Red Blood Cells % 0.1 %; Red Blood Cells 5.69 10^6/uL (4.0-5.20); Red Cell Distribution Width 17.9 % (11.8-14.3); White Blood Cell 7.3 10^3/uL (4.4-10.8)
[2022-04-13 23:40] LABS: Albumin 3.7 g/dL (3.4-5.0); Calcium 9.4 mg/dL (8.5-10.1); Potassium 4.8 mmol/L (3.5-5.1)
[2022-04-13 23:43] LABS: BUN/Creatinine Ratio 13.9; Bilirubin, Total 1.9 mg/dL (0.2-1.0); Total Protein 7.3 g/dL (6.4-8.2)
== END 2022-04-14 00:20 | disposition left against medical advice (07) ==
LOC: ER 22:00
DX: Z48.00 Encounter for change or removal of nonsurgical wound dressing (principal); Z53.21 Procedure and treatment not carried out due to patient leaving prior to being seen by health care provider; Z79.899 Other long term (current) drug therapy
CPT/HCPCS: 36415; 80053; 82962; 84484; 85025; 93005

== ENCOUNTER 2023-02-16 04:08 | Inpatient (IN) | payer MEDICAID ==
[~2023-02-16] VITALS: Ht 172.7 cm; Wt 115.1 kg
[2023-02-16] VITALS (21 sets, daily range): BP systolic 112–136; BP diastolic 72–97; PULSE 69–88; RESP 11–21; TEMP 97.5; O2SAT 87–97
[~2023-02-16 04:08] MED LIST changes: +ASPI-736 PO; -ASPI1CHW15 PO; +GABA-1308 PO; -GABA100C9 PO
[2023-02-16] MEDS ORDERED: IPRATROPIUM BROM 0.5 MG/2.5ML INH SOL NEB ONE (04:45)
[2023-02-16] MEDS ORDERED: ALBUTEROL SULF 2.5 MG/0.5ML(0.5%) NEB SOLN NEB ONE (04:45)
[2023-02-16 04:49] LABS: Basophils # (auto) 0.1 10 ^3/uL (0-0.2); Eosinophils # (auto) 0.2 10 ^3/uL (0-0.8); Eosinophils % (auto) 2.4 % (0.0-7.0); Hematocrit 44.5 % (36.0-46.0); Hemoglobin 14.1 g/dL (12.2-16.2); Lymphocytes # (auto) 1.2 10 ^3/uL (0.4-5.4); Lymphocytes % (auto) 18.7 % (10.0-50.0); Mean Corpuscular Hemoglobin 28.1 pg (28.0-32.0); Mean Corpuscular Hgb Conc. 31.6 g/dL (32.0-36.0); Mean Corpuscular Volume 88.8 fL (80.0-100.0); Monocytes # (auto) 0.5 10 ^3/uL (0-1.3); Monocytes % (auto) 7.1 % (0.0-12.0); Neutrophils # (auto) 4.5 10 ^3/uL (1.6-8.6); Neutrophils % (auto) 69.8 % (37.0-80.0); Nucleated Red Blood Cells % 0.1 %; Red Blood Cells 5.01 10^6/uL (4.0-5.20); Red Cell Distribution Width 18.1 % (11.8-14.3); White Blood Cell 6.4 10^3/uL (4.4-10.8)
[2023-02-16 04:56] LABS: Base Excess -6.4 mmol/L (-2.0-2.0)
[2023-02-16 04:57] LABS: Alanine Aminotransferase 14 U/L (7-40); Albumin 4.6 g/dL (3.2-4.8); Alkaline Phosphatase 239 U/L (46-116); Anion Gap 7 (5-15); Aspartate Aminotransferase 24 U/L (13-40); BUN/Creatinine Ratio 17.3 (10.0-20.0); Blood Urea Nitrogen 24 mg/dL (9-23); Calcium 9.4 mg/dL (8.7-10.4); Carbon Dioxide 20 mmol/L (20-30); Chloride 106 mmol/L (98-107); Glucose 120 mg/dL (74-106); Magnesium 2.3 mg/dL (1.6-2.6); Potassium 5.2 mmol/L (3.5-5.1); Sodium 133 mmol/L (136-145)
[2023-02-16 04:58] LABS: Bilirubin, Total 2.1 mg/dL (0.2-1.0); Total Protein 7.7 g/dL (5.7-8.2)
[2023-02-16 05:07] LABS: INR 1.34 (0.9-1.15); Partial Thromboplastin Time 31.6 SEC (24.5-34.5); Prothrombin Time 13.8 sec (9.3-11.8)
[2023-02-16 06:10] LABS: COVID19 ANTIGEN SOFIA FIA NEGATIVE (NEGATIVE); Rapid Influenza A Negative (Negative); Rapid Influenza B Negative (Negative)
[2023-02-16] MEDS ORDERED: IOHEXOL 350 MG/ML 100ML IJ ONE (06:58)
[2023-02-16] MEDS ORDERED: FUROSEMIDE 40 MG/4 ML VIAL IV ONE (07:00)
[2023-02-16] MEDS ORDERED: ASPirin-EC 325mg tab PO ONE (07:00)
[2023-02-16 10:00] LABS: Urine Bacteria NONE SEEN /hpf (None Seen); Urine Blood Negative /uL (Negative); Urine Clarity Clear (Clear); Urine Color Yellow (Yellow); Urine Hyaline Cast FEW /lpf (0 - 2); Urine Protein, UAD TRACE (Negative); Urine Specific Gravity 1.022 (1.001-1.035); Urine WBC 1 /hpf (0 - 5); Urine pH 5.5 (5.0-8.0)
[2023-02-16] MEDS ORDERED: MORPHINE SULFATE INJ 2 MG/ml SYRG IV PRN (10:00)
[2023-02-16] MEDS ORDERED: NITROGLYCERIN 0.4 MG SL TAB SL PRN (10:00)
[2023-02-16] MEDS ORDERED: LORazepam 0.5 MG TAB PO PRN (10:00)
[2023-02-16] MEDS ORDERED: ALBUTEROL SULF 2.5 MG/0.5ML(0.5%) NEB SOLN NEB PRN (10:00)
[2023-02-16] MEDS ORDERED: DEXTROSE (50%) 50ML SYRG IV PRN (10:00)
[2023-02-16] MEDS ORDERED: FUROSEMIDE 20 MG/2 ML VIAL IV SCH (10:00)
[2023-02-16] MEDS ORDERED: ASPirin 81 mg TAB PO SCH (10:00)
[2023-02-16] MEDS ORDERED: ENOXAPARIN SOD 100 MG/1 ML SYRINGE SC ONE (10:15)
[2023-02-16 10:42] LABS: Triglycerides 70 mg/dL (< 150)
[2023-02-16 10:43] LABS: LDL Cholesterol 53 mg/dL (< 100)
[2023-02-16 10:44] LABS: Cholesterol 100 mg/dL (< 200); HDL Cholesterol 38 mg/dL (40-59)
[2023-02-16] MEDS: ALBUTEROL SULF 2.5 MG/0.5ML(0.5%) NEB SOLN NEB SCH ×4 (11:15→21:24)
[2023-02-16] MEDS: IPRATROPIUM BROM 0.5 MG/2.5ML INH SOL NEB SCH ×4 (11:15→21:24)
[2023-02-16] MEDS: ACCU-CHEK COMFORT CURVE STRIP VI SCH ×3 (11:30→22:25)
[2023-02-16] MEDS: InsuLIN REG 1unit/0.01ml Soln (100units/ml) SC SCH ×3 (11:30→22:00)
[2023-02-16] MEDS: GABAPENTIN 100 MG CAP PO SCH ×2 (14:20→22:21)
[2023-02-16] MEDS ORDERED: ENOXAPARIN SOD 100 MG/1 ML SYRINGE SC SCH (22:00)
[2023-02-16] MEDS: ATORVASTATIN 20 MG TAB PO SCH (22:21)
[2023-02-16] MEDS: APIXABAN 5 MG TAB PO SCH (22:21)
[2023-02-16] MEDS: METOPROLOL TARTRATE 25 MG TAB PO SCH (22:21)
[2023-02-16] MEDS: ALPRAZolam 0.5 MG TAB PO SCH (22:21)
[2023-02-17] VITALS (37 sets, daily range): BP systolic 94–127; BP diastolic 54–87; PULSE 71–86; RESP 11–22; TEMP 96.8–98.2; O2SAT 86–97
[2023-02-17] MEDS: ACETAMINOPHEN 325 MG TAB PO PRN (01:48)
[2023-02-17] MEDS: IPRATROPIUM BROM 0.5 MG/2.5ML INH SOL NEB SCH ×6 (01:49→21:55)
[2023-02-17] MEDS: ALBUTEROL SULF 2.5 MG/0.5ML(0.5%) NEB SOLN NEB SCH ×6 (01:49→21:55)
[2023-02-17 05:11] LABS: Base Excess -4.8 mmol/L (-2.0-2.0)
[2023-02-17] MEDS: GABAPENTIN 100 MG CAP PO SCH ×3 (05:43→21:29)
[2023-02-17 06:27] LABS: Basophils # (auto) 0.1 10 ^3/uL (0-0.2); Basophils % (auto) 1.1 % (0.0-2.0); Eosinophils # (auto) 0.1 10 ^3/uL (0-0.8); Eosinophils % (auto) 2.2 % (0.0-7.0); Hematocrit 40.9 % (36.0-46.0); Hemoglobin 13.2 g/dL (12.2-16.2); Lymphocytes # (auto) 1.3 10 ^3/uL (0.4-5.4); Lymphocytes % (auto) 20.7 % (10.0-50.0); Mean Corpuscular Hemoglobin 28.4 pg (28.0-32.0); Mean Corpuscular Hgb Conc. 32.3 g/dL (32.0-36.0); Monocytes # (auto) 0.5 10 ^3/uL (0-1.3); Monocytes % (auto) 7.3 % (0.0-12.0); Neutrophils # (auto) 4.3 10 ^3/uL (1.6-8.6); Neutrophils % (auto) 68.7 % (37.0-80.0); Nucleated Red Blood Cells % 0.1 %; Red Blood Cells 4.64 10^6/uL (4.0-5.20); Red Cell Distribution Width 17.7 % (11.8-14.3); White Blood Cell 6.2 10^3/uL (4.4-10.8)
[2023-02-17 06:42] LABS: Alanine Aminotransferase 12 U/L (7-40); Albumin 4.3 g/dL (3.2-4.8); Alkaline Phosphatase 203 U/L (46-116); Anion Gap 12 (5-15); Aspartate Aminotransferase 22 U/L (13-40); BUN/Creatinine Ratio 21.6 (10.0-20.0); Bilirubin, Total 2.2 mg/dL (0.2-1.0); Blood Urea Nitrogen 27 mg/dL (9-23); Calcium 9.7 mg/dL (8.5-10.1); Carbon Dioxide 20 mmol/L (20-30); Chloride 104 mmol/L (98-107); Glucose 89 mg/dL (74-106); Potassium 4.2 mmol/L (3.5-5.1); Sodium 136 mmol/L (136-145); Total Protein 7.2 g/dL (5.7-8.2)
[2023-02-17] MEDS: InsuLIN REG 1unit/0.01ml Soln (100units/ml) SC SCH ×4 (06:54→22:00)
[2023-02-17] MEDS: ACCU-CHEK COMFORT CURVE STRIP VI SCH ×3 (06:55→17:29)
[2023-02-17 07:18] LABS: Base Excess -4.2 mmol/L (-2.0-2.0)
[2023-02-17] MEDS ORDERED: FLUoxetine HCL 20 MG CAP PO SCH (10:00)
[2023-02-17] MEDS: APIXABAN 5 MG TAB PO SCH (10:00)
[2023-02-17] MEDS: ALPRAZolam 0.5 MG TAB PO SCH ×2 (10:38→21:28)
[2023-02-17] MEDS: METOPROLOL TARTRATE 25 MG TAB PO SCH ×2 (10:39→21:28)
[2023-02-17] MEDS: LISINOPRIL 5 MG TAB PO SCH (10:40)
[2023-02-17] MEDS: CHOLECALCIFEROL (VITD3) 2,000 UNIT CAP/TAB PO SCH (10:40)
[2023-02-17] MEDS ORDERED: FUROSEMIDE 40 MG/4 ML VIAL IV SCH (10:45)
[2023-02-17] MEDS: ASPirin 81 mg TAB PO SCH (10:55)
[2023-02-17] MEDS ORDERED: FUROSEMIDE 20 MG/2 ML VIAL ONE (11:57)
[2023-02-17] MEDS ORDERED: ENOXAPARIN SOD 100 MG/1 ML SYRINGE SC SCH (12:30)
[2023-02-17] MEDS ORDERED: HEPARIN DRIP/D5W 100UNITS/ML 250 ML IV SCH (14:00)
[2023-02-17] MEDS ORDERED: BUMETANIDE 2.5mg/10ml (0.25 mg/ml) INJ IV ONE (14:15)
[2023-02-17 14:37] LABS: Basophils # (auto) 0.1 10 ^3/uL (0-0.2); Basophils % (auto) 1.4 % (0.0-2.0); Eosinophils # (auto) 0.1 10 ^3/uL (0-0.8); Eosinophils % (auto) 2.1 % (0.0-7.0); Hematocrit 41.2 % (36.0-46.0); Hemoglobin 13.4 g/dL (12.2-16.2); Lymphocytes # (auto) 1.1 10 ^3/uL (0.4-5.4); Lymphocytes % (auto) 16.6 % (10.0-50.0); Mean Corpuscular Hemoglobin 28.4 pg (28.0-32.0); Mean Corpuscular Hgb Conc. 32.5 g/dL (32.0-36.0); Mean Corpuscular Volume 87.4 fL (80.0-100.0); Monocytes # (auto) 0.4 10 ^3/uL (0-1.3); Monocytes % (auto) 5.7 % (0.0-12.0); Neutrophils # (auto) 5.1 10 ^3/uL (1.6-8.6); Neutrophils % (auto) 74.2 % (37.0-80.0); Red Blood Cells 4.72 10^6/uL (4.0-5.20); White Blood Cell 6.8 10^3/uL (4.4-10.8)
[2023-02-17 14:52] LABS: INR 1.35 (0.9-1.15); Partial Thromboplastin Time 31.4 SEC (24.5-34.5); Prothrombin Time 13.9 sec (9.3-11.8)
[2023-02-17] MEDS: ATORVASTATIN 20 MG TAB PO SCH (21:29)
[2023-02-17 22:44] LABS: INR 1.36 (0.9-1.15)
[2023-02-17 22:47] LABS: Partial Thromboplastin Time 94.9 SEC (24.5-34.5)
[2023-02-17 23:22] LABS: Amphetamine Screen, Urine Neg (NEGATIVE); Barbiturate Scree,Urine Neg (NEGATIVE); Benzodiazephine Screen, Urine Neg (NEGATIVE); Cannabinoid Screen, Urine Neg (NEGATIVE); Cocaine Screen, Urine Neg (NEGATIVE); Opiate Scree,Urine Neg (NEGATIVE); Phencyclidine Screen, Urine Neg (NEGATIVE)
[2023-02-18] VITALS (66 sets, daily range): BP systolic 92–191; BP diastolic 57–121; PULSE 66–89; RESP 12–22; TEMP 97.1–99; O2SAT 84–99
[2023-02-18] MEDS: IPRATROPIUM BROM 0.5 MG/2.5ML INH SOL NEB SCH ×5 (02:07→22:37)
[2023-02-18] MEDS: ALBUTEROL SULF 2.5 MG/0.5ML(0.5%) NEB SOLN NEB SCH ×5 (02:07→22:37)
[2023-02-18] MEDS: HEPARIN DRIP/D5W 100UNITS/ML 250 ML IV SCH ×2 (04:37→14:33)
[2023-02-18] MEDS: ACCU-CHEK COMFORT CURVE STRIP VI SCH ×5 (04:38→21:56)
[2023-02-18] MEDS: FUROSEMIDE 40 MG/4 ML VIAL IV SCH ×2 (05:44→18:12)
[2023-02-18] MEDS: GABAPENTIN 100 MG CAP PO SCH ×3 (05:44→21:53)
[2023-02-18 06:28] LABS: Basophils # (auto) 0.1 10 ^3/uL (0-0.2); Basophils % (auto) 1.2 % (0.0-2.0); Eosinophils # (auto) 0.1 10 ^3/uL (0-0.8); Eosinophils % (auto) 1.9 % (0.0-7.0); Hematocrit 41.1 % (36.0-46.0); Hemoglobin 13.3 g/dL (12.2-16.2); Lymphocytes # (auto) 1.5 10 ^3/uL (0.4-5.4); Lymphocytes % (auto) 24.4 % (10.0-50.0); Mean Corpuscular Hemoglobin 28.7 pg (28.0-32.0); Mean Corpuscular Hgb Conc. 32.5 g/dL (32.0-36.0); Mean Corpuscular Volume 88.3 fL (80.0-100.0); Monocytes # (auto) 0.4 10 ^3/uL (0-1.3); Monocytes % (auto) 7.4 % (0.0-12.0); Neutrophils # (auto) 3.9 10 ^3/uL (1.6-8.6); Neutrophils % (auto) 65.1 % (37.0-80.0); Red Blood Cells 4.65 10^6/uL (4.0-5.20); Red Cell Distribution Width 17.9 % (11.8-14.3)
[2023-02-18] MEDS: InsuLIN REG 1unit/0.01ml Soln (100units/ml) SC SCH ×4 (06:37→22:00)
[2023-02-18 06:52] LABS: Alanine Aminotransferase 12 U/L (7-40); Albumin 4.2 g/dL (3.2-4.8); Alkaline Phosphatase 200 U/L (46-116); Anion Gap 9 (5-15); Aspartate Aminotransferase 19 U/L (13-40); Bilirubin, Total 1.8 mg/dL (0.2-1.0); Blood Urea Nitrogen 33 mg/dL (9-23); Calcium 9.4 mg/dL (8.7-10.4); Carbon Dioxide 22 mmol/L (20-30); Chloride 103 mmol/L (98-107); Glucose 113 mg/dL (74-106); Potassium 4.1 mmol/L (3.5-5.1); Sodium 134 mmol/L (136-145); Total Protein 7.2 g/dL (5.7-8.2)
[2023-02-18 08:51] LABS: Base Excess 0.7 mmol/L (-2.0-2.0)
[2023-02-18] MEDS: CHOLECALCIFEROL (VITD3) 2,000 UNIT CAP/TAB PO SCH (10:00)
[2023-02-18] MEDS: LISINOPRIL 5 MG TAB PO SCH (10:00)
[2023-02-18] MEDS: ALPRAZolam 0.5 MG TAB PO SCH ×2 (10:00→21:53)
[2023-02-18] MEDS: METOPROLOL TARTRATE 25 MG TAB PO SCH ×2 (10:00→21:56)
[2023-02-18] MEDS: ASPirin 81 mg TAB PO SCH (10:00)
[2023-02-18] MEDS ORDERED: ETOMIDATE (2MG/ML) 20ML VIAL IV ONE ×2 (10:13→10:45)
[2023-02-18] MEDS ORDERED: ROCURONIUM 10MG/ML 10ML VIAL IV ONE ×2 (10:14→10:45)
[2023-02-18] MEDS ORDERED: fentaNYL Drip 2500mCg/250mlNS 250 ML IV ONE (10:16)
[2023-02-18] MEDS ORDERED: MIDAZOLAM DRIP 50 mg/50mL 50 ML IV ONE (10:16)
[2023-02-18] MEDS ORDERED: NOREPINEPHRINE 8 MG/250ML KIT 250 ML IV ONE (10:33)
[2023-02-18] MEDS: NOREPINEPHRINE 8 MG/250ML KIT 250 ML IV SCH (10:45)
[2023-02-18] MEDS: fentaNYL Drip 2500mCg/250mlNS 250 ML IV SCH (11:08)
[2023-02-18] MEDS: MIDAZOLAM DRIP 50 mg/50mL 50 ML IV SCH ×3 (11:08→21:58)
[2023-02-18] MEDS ORDERED: PROPOFOL 100 ML IV ONE (11:26)
[2023-02-18] MEDS: PROPOFOL 100 ML IV SCH (12:40)
[2023-02-18] MEDS ORDERED: IOHEXOL 350 MG/ML 100ML IJ ONE (12:54)
[2023-02-18 14:31] LABS: Basophils # (auto) 0.1 10 ^3/uL (0-0.2); Basophils % (auto) 0.9 % (0.0-2.0); Eosinophils # (auto) 0.1 10 ^3/uL (0-0.8); Eosinophils % (auto) 1.2 % (0.0-7.0); Hematocrit 42.6 % (36.0-46.0); Hemoglobin 13.7 g/dL (12.2-16.2); Lymphocytes # (auto) 0.9 10 ^3/uL (0.4-5.4); Lymphocytes % (auto) 12.8 % (10.0-50.0); Mean Corpuscular Hemoglobin 28.6 pg (28.0-32.0); Mean Corpuscular Hgb Conc. 32.1 g/dL (32.0-36.0); Monocytes # (auto) 0.5 10 ^3/uL (0-1.3); Neutrophils # (auto) 5.4 10 ^3/uL (1.6-8.6); Neutrophils % (auto) 78.1 % (37.0-80.0); Nucleated Red Blood Cells % 0.1 %; Red Blood Cells 4.79 10^6/uL (4.0-5.20); White Blood Cell 6.9 10^3/uL (4.4-10.8)
[2023-02-18 14:46] LABS: INR 1.27 (0.9-1.15); Prothrombin Time 13.1 sec (9.3-11.8)
[2023-02-18 15:36] LABS: Base Excess -4.2 mmol/L (-2.0-2.0)
[2023-02-18] MEDS: ATORVASTATIN 20 MG TAB PO SCH (21:53)
[2023-02-19] VITALS (105 sets, daily range): BP systolic 59–118; BP diastolic 40–75; PULSE 80–99; RESP 12–31; TEMP 92.5–100.8; O2SAT 89–100
[2023-02-19] MEDS: IPRATROPIUM BROM 0.5 MG/2.5ML INH SOL NEB SCH ×6 (02:26→22:03)
[2023-02-19] MEDS: ALBUTEROL SULF 2.5 MG/0.5ML(0.5%) NEB SOLN NEB SCH ×6 (02:26→22:03)
[2023-02-19 02:46] LABS: Basophils # (auto) 0.1 10 ^3/uL (0-0.2); Basophils % (auto) 0.8 % (0.0-2.0); Eosinophils # (auto) 0.1 10 ^3/uL (0-0.8); Eosinophils % (auto) 0.8 % (0.0-7.0); Hematocrit 42.6 % (36.0-46.0); Hemoglobin 13.6 g/dL (12.2-16.2); Lymphocytes # (auto) 0.9 10 ^3/uL (0.4-5.4); Lymphocytes % (auto) 10.5 % (10.0-50.0); Mean Corpuscular Hemoglobin 28.6 pg (28.0-32.0); Mean Corpuscular Hgb Conc. 31.9 g/dL (32.0-36.0); Mean Corpuscular Volume 89.7 fL (80.0-100.0); Monocytes # (auto) 0.6 10 ^3/uL (0-1.3); Monocytes % (auto) 7.2 % (0.0-12.0); Neutrophils # (auto) 6.9 10 ^3/uL (1.6-8.6); Neutrophils % (auto) 80.7 % (37.0-80.0); Nucleated Red Blood Cells % 0.1 %; Red Blood Cells 4.75 10^6/uL (4.0-5.20); Red Cell Distribution Width 17.9 % (11.8-14.3); White Blood Cell 8.6 10^3/uL (4.4-10.8)
[2023-02-19 03:04] LABS: INR 1.25 (0.9-1.15); Prothrombin Time 12.9 sec (9.3-11.8)
[2023-02-19 03:05] LABS: Chloride 100 mmol/L (98-107); Potassium 3.7 mmol/L (3.5-5.1); Sodium 135 mmol/L (136-145)
[2023-02-19 03:06] LABS: Anion Gap 11 (5-15); Calcium 9.4 mg/dL (8.7-10.4); Carbon Dioxide 24 mmol/L (20-30)
[2023-02-19 03:11] LABS: BUN/Creatinine Ratio 25.3 (10.0-20.0); Blood Urea Nitrogen 41 mg/dL (9-23); Glucose 130 mg/dL (74-106)
[2023-02-19] MEDS: HEPARIN DRIP/D5W 100UNITS/ML 250 ML IV SCH (05:16)
[2023-02-19] MEDS: GABAPENTIN 100 MG CAP PO SCH ×3 (05:47→21:34)
[2023-02-19] MEDS: FUROSEMIDE 40 MG/4 ML VIAL IV SCH (05:47)
[2023-02-19] MEDS: InsuLIN REG 1unit/0.01ml Soln (100units/ml) SC SCH ×4 (06:44→21:40)
[2023-02-19] MEDS: ACCU-CHEK COMFORT CURVE STRIP VI SCH ×4 (06:44→21:40)
[2023-02-19 07:05] LABS: Base Excess -7.1 mmol/L (-2.0-2.0)
[2023-02-19] MEDS: ACETAMINOPHEN 325 MG TAB PO PRN (07:10)
[2023-02-19] MEDS: fentaNYL Drip 2500mCg/250mlNS 250 ML IV SCH (08:10)
[2023-02-19] MEDS ORDERED: Jevity 1.2 Cal/Fiber 1 Liter GT SCH (08:30)
[2023-02-19] MEDS ORDERED: FUROSEMIDE 40 MG/4 ML VIAL IV SCH (10:00)
[2023-02-19] MEDS ORDERED: ENOXAPARIN SOD 40 MG/0.4 ML SYRINGE SC SCH (10:00)
[2023-02-19] MEDS: NOREPINEPHRINE 8 MG/250ML KIT 250 ML IV SCH ×2 (10:45→17:14)
[2023-02-19 12:04] LABS: Base Excess -9.6 mmol/L (-2.0-2.0)
[2023-02-19] MEDS: PROPOFOL 100 ML IV SCH (12:30)
[2023-02-19] MEDS: ASPirin 81 mg TAB PO SCH (13:09)
[2023-02-19] MEDS: CHOLECALCIFEROL (VITD3) 2,000 UNIT CAP/TAB PO SCH (13:09)
[2023-02-19] MEDS: FREE WATER GT SCH ×2 (13:12→17:15)
[2023-02-19] MEDS ORDERED: SODIUM BICARBONATE 8.4 % INJ 50ML VIAL IV ONE ×2 (13:15→20:45)
[2023-02-19] MEDS: SILDENAFIL CITRATE 20 MG TAB PO SCH ×2 (14:00→15:06)
[2023-02-19] MEDS: FUROSEMIDE INJECTION 100 MG in D5W 5% 100 ML IV SCH (14:15)
[2023-02-19 20:02] LABS: Base Excess -7.3 mmol/L (-2.0-2.0)
[2023-02-19] MEDS ORDERED: SODIUM BICARBONATE 50ML VIAL 100 ML in SOD CHL 0.45% 1,000 ML IV SCH (20:45)
[2023-02-19] MEDS: ATORVASTATIN 20 MG TAB PO SCH (21:34)
[2023-02-19 22:18] LABS: Alanine Aminotransferase 10 U/L (7-40); Albumin 4.4 g/dL (3.2-4.8); Alkaline Phosphatase 190 U/L (46-116); Anion Gap 9 (5-15); Aspartate Aminotransferase 19 U/L (13-40); BUN/Creatinine Ratio 19.5 (10.0-20.0); Calcium 8.6 mg/dL (8.7-10.4); Carbon Dioxide 25 mmol/L (20-30); Chloride 100 mmol/L (98-107); Glucose 141 mg/dL (74-106); Magnesium 2.4 mg/dL (1.6-2.6); Potassium 5.5 mmol/L (3.5-5.1); Sodium 134 mmol/L (136-145)
[2023-02-19 22:19] LABS: Bilirubin, Total 1.8 mg/dL (0.2-1.0); Phosphorus 10.5 mg/dL (2.4-5.1); Total Protein 7.4 g/dL (5.7-8.2)
[2023-02-19 22:28] LABS: Blood Urea Nitrogen 52 mg/dL (9-23)
[2023-02-19 22:48] LABS: Base Excess -8.1 mmol/L (-2.0-2.0)
[2023-02-20] VITALS (106 sets, daily range): BP systolic 90–128; BP diastolic 39–107; PULSE 85–91; RESP 13–26; TEMP 99–99.5; O2SAT 84–100
[2023-02-20] MEDS ORDERED: SODIUM BICARBONATE 8.4 % INJ 50ML VIAL IV ONE
[2023-02-20] MEDS: FREE WATER GT SCH ×4 (00:07→18:00)
[2023-02-20] MEDS: PHENYLEPHRINE INJ 80 MG in SODIUM CHL 0.9% 242 ML IV SCH (00:15)
[2023-02-20 02:01] LABS: Basophils # (auto) 0.1 10 ^3/uL (0-0.2); Basophils % (auto) 1.5 % (0.0-2.0); Eosinophils # (auto) 0 10 ^3/uL (0-0.8); Eosinophils % (auto) 0.4 % (0.0-7.0); Hematocrit 42.7 % (36.0-46.0); Hemoglobin 13.6 g/dL (12.2-16.2); Lymphocytes # (auto) 0.8 10 ^3/uL (0.4-5.4); Lymphocytes % (auto) 8.3 % (10.0-50.0); Mean Corpuscular Hemoglobin 28.5 pg (28.0-32.0); Mean Corpuscular Hgb Conc. 31.9 g/dL (32.0-36.0); Mean Corpuscular Volume 89.4 fL (80.0-100.0); Monocytes # (auto) 0.8 10 ^3/uL (0-1.3); Monocytes % (auto) 7.6 % (0.0-12.0); Neutrophils # (auto) 8.3 10 ^3/uL (1.6-8.6); Neutrophils % (auto) 82.2 % (37.0-80.0); Nucleated Red Blood Cells % 0.1 %; Red Blood Cells 4.78 10^6/uL (4.0-5.20); Red Cell Distribution Width 17.8 % (11.8-14.3); White Blood Cell 10.1 10^3/uL (4.4-10.8)
[2023-02-20 02:09] LABS: Alanine Aminotransferase 10 U/L (7-40); Albumin 4.3 g/dL (3.2-4.8); Alkaline Phosphatase 182 U/L (46-116); Anion Gap 10 (5-15); Aspartate Aminotransferase 20 U/L (13-40); BUN/Creatinine Ratio 19.5 (10.0-20.0); Blood Urea Nitrogen 51 mg/dL (9-23); Calcium 8.6 mg/dL (8.7-10.4); Carbon Dioxide 25 mmol/L (20-30); Chloride 99 mmol/L (98-107); Glucose 155 mg/dL (74-106); Potassium 4.9 mmol/L (3.5-5.1); Sodium 134 mmol/L (136-145)
[2023-02-20 02:10] LABS: Total Protein 7.2 g/dL (5.7-8.2)
[2023-02-20] MEDS: IPRATROPIUM BROM 0.5 MG/2.5ML INH SOL NEB SCH ×6 (02:19→22:10)
[2023-02-20] MEDS: ALBUTEROL SULF 2.5 MG/0.5ML(0.5%) NEB SOLN NEB SCH ×6 (02:19→22:10)
[2023-02-20] MEDS: GABAPENTIN 100 MG CAP PO SCH ×3 (06:14→21:27)
[2023-02-20] MEDS: InsuLIN REG 1unit/0.01ml Soln (100units/ml) SC SCH ×4 (06:19→21:38)
[2023-02-20] MEDS: ACCU-CHEK COMFORT CURVE STRIP VI SCH ×4 (06:19→21:38)
[2023-02-20 07:44] LABS: Base Excess -2.8 mmol/L (-2.0-2.0)
[2023-02-20] MEDS: ASPirin 81 mg TAB PO SCH (10:22)
[2023-02-20] MEDS: CHOLECALCIFEROL (VITD3) 2,000 UNIT CAP/TAB PO SCH (10:22)
[2023-02-20] MEDS: MIDAZOLAM DRIP 50 mg/50mL 50 ML IV SCH ×2 (10:45→21:30)
[2023-02-20] MEDS: fentaNYL Drip 2500mCg/250mlNS 250 ML IV SCH ×2 (10:45→21:31)
[2023-02-20] MEDS: SODIUM BICARBONATE 50ML VIAL 100 ML in SOD CHL 0.45% 1,000 ML IV SCH ×4 (11:00→16:41)
[2023-02-20] MEDS ORDERED: Jevity 1.2 Cal/Fiber 1 Liter GT SCH (11:15)
[2023-02-20 11:32] LABS: Base Excess -2.6 mmol/L (-2.0-2.0)
[2023-02-20] MEDS ORDERED: CHOL500023 PO (12:09)
[2023-02-20] MEDS ORDERED: METO1TAB77 PO (12:11)
[2023-02-20] MEDS: NOREPINEPHRINE 8 MG/250ML KIT 250 ML IV SCH (12:22)
[2023-02-20] MEDS ORDERED: CALCIUM ACETATE 667 MG CAP ONE (16:38)
[2023-02-20] MEDS: CALCIUM ACETATE 667 MG CAP PO SCH ×2 (16:40→21:28)
[2023-02-20] MEDS: ATORVASTATIN 20 MG TAB PO SCH (21:28)
[2023-02-21] VITALS (107 sets, daily range): BP systolic 88–120; BP diastolic 36–67; PULSE 81–92; RESP 15–28; TEMP 98.4–99.3; O2SAT 88–100
[2023-02-21] MEDS: FREE WATER GT SCH ×2 (00:10→06:00)
[2023-02-21] MEDS: PHENYLEPHRINE INJ 80 MG in SODIUM CHL 0.9% 242 ML IV SCH ×2 (00:11→23:23)
[2023-02-21] MEDS: FUROSEMIDE INJECTION 100 MG in D5W 5% 100 ML IV SCH (01:04)
[2023-02-21] MEDS: ALBUTEROL SULF 2.5 MG/0.5ML(0.5%) NEB SOLN NEB SCH ×6 (02:09→22:03)
[2023-02-21] MEDS: IPRATROPIUM BROM 0.5 MG/2.5ML INH SOL NEB SCH ×6 (02:09→22:03)
[2023-02-21] MEDS: SODIUM BICARBONATE 50ML VIAL 100 ML in SOD CHL 0.45% 1,000 ML IV SCH ×3 (03:58→22:21)
[2023-02-21 04:14] LABS: Basophils # (auto) 0 10 ^3/uL (0-0.2); Basophils % (auto) 0.2 % (0.0-2.0); Eosinophils # (auto) 0.2 10 ^3/uL (0-0.8); Eosinophils % (auto) 1.9 % (0.0-7.0); Hematocrit 39.8 % (36.0-46.0); Lymphocytes # (auto) 0.6 10 ^3/uL (0.4-5.4); Lymphocytes % (auto) 6.8 % (10.0-50.0); Mean Corpuscular Hemoglobin 28.3 pg (28.0-32.0); Mean Corpuscular Hgb Conc. 32.6 g/dL (32.0-36.0); Mean Corpuscular Volume 86.8 fL (80.0-100.0); Monocytes # (auto) 0.7 10 ^3/uL (0-1.3); Neutrophils # (auto) 7.6 10 ^3/uL (1.6-8.6); Neutrophils % (auto) 83.1 % (37.0-80.0); Nucleated Red Blood Cells % 0.1 %; Red Blood Cells 4.58 10^6/uL (4.0-5.20); Red Cell Distribution Width 17.9 % (11.8-14.3); White Blood Cell 9.1 10^3/uL (4.4-10.8)
[2023-02-21 04:34] LABS: Alkaline Phosphatase 153 U/L (46-116); Anion Gap 11 (5-15); Aspartate Aminotransferase 21 U/L (13-40); BUN/Creatinine Ratio 25.4 (10.0-20.0); Blood Urea Nitrogen 53 mg/dL (9-23); Carbon Dioxide 25 mmol/L (20-30); Chloride 97 mmol/L (98-107); Glucose 132 mg/dL (74-106); Potassium 4.2 mmol/L (3.5-5.1); Sodium 133 mmol/L (136-145)
[2023-02-21 04:35] LABS: Albumin 3.8 g/dL (3.2-4.8); Bilirubin, Total 2.3 mg/dL (0.2-1.0); Total Protein 6.7 g/dL (5.7-8.2)
[2023-02-21 04:42] LABS: Alanine Aminotransferase < 9 U/L (7-40)
[2023-02-21] MEDS: CALCIUM ACETATE 667 MG CAP PO SCH ×3 (06:00→21:23)
[2023-02-21] MEDS: GABAPENTIN 100 MG CAP PO SCH ×3 (06:00→21:23)
[2023-02-21] MEDS: ACCU-CHEK COMFORT CURVE STRIP VI SCH ×4 (06:48→21:26)
[2023-02-21] MEDS: InsuLIN REG 1unit/0.01ml Soln (100units/ml) SC SCH ×4 (06:48→21:26)
[2023-02-21 07:23] LABS: Base Excess 3.5 mmol/L (-2.0-2.0)
[2023-02-21] MEDS: MIDAZOLAM DRIP 50 mg/50mL 50 ML IV SCH ×2 (08:18→22:23)
[2023-02-21] MEDS: Jevity 1.2 Cal/Fiber 1 Liter GT SCH (09:20)
[2023-02-21] MEDS: PANTOPRAZOLE 40 MG/10 ML VIAL INJ IV SCH (09:39)
[2023-02-21] MEDS: ENOXAPARIN SOD 100 MG/1 ML SYRINGE SC SCH (09:40)
[2023-02-21] MEDS: CHOLECALCIFEROL (VITD3) 2,000 UNIT CAP/TAB PO SCH (09:41)
[2023-02-21 11:48] LABS: Protein, Urine 191.5 mg/dL (0.0-11.9)
[2023-02-21 11:51] LABS: Creatinine, Urine 88.8 mg/dL (30.0-125.0); Urine Protein/Creatinine Ratio 2.16
[2023-02-21] MEDS: fentaNYL Drip 2500mCg/250mlNS 250 ML IV SCH (12:41)
[2023-02-21] MEDS: NOREPINEPHRINE 8 MG/250ML KIT 250 ML IV SCH ×2 (13:21→23:54)
[2023-02-21] MEDS: ATORVASTATIN 20 MG TAB PO SCH (21:23)
[2023-02-22] VITALS (83 sets, daily range): BP systolic 92–135; BP diastolic 34–77; PULSE 82–97; RESP 20–35; TEMP 98.8–99.7; O2SAT 81–99
[2023-02-22] MEDS: IPRATROPIUM BROM 0.5 MG/2.5ML INH SOL NEB SCH ×6 (02:17→22:30)
[2023-02-22] MEDS: ALBUTEROL SULF 2.5 MG/0.5ML(0.5%) NEB SOLN NEB SCH ×6 (02:18→22:30)
[2023-02-22 04:31] LABS: Basophils # (auto) 0.1 10 ^3/uL (0-0.2); Eosinophils # (auto) 0.2 10 ^3/uL (0-0.8); Hematocrit 38.6 % (36.0-46.0); Hemoglobin 12.8 g/dL (12.2-16.2); Lymphocytes # (auto) 0.6 10 ^3/uL (0.4-5.4); Lymphocytes % (auto) 9.8 % (10.0-50.0); Mean Corpuscular Hemoglobin 28.9 pg (28.0-32.0); Mean Corpuscular Hgb Conc. 33.2 g/dL (32.0-36.0); Mean Corpuscular Volume 86.9 fL (80.0-100.0); Monocytes # (auto) 0.5 10 ^3/uL (0-1.3); Monocytes % (auto) 8.5 % (0.0-12.0); Neutrophils # (auto) 4.7 10 ^3/uL (1.6-8.6); Neutrophils % (auto) 76.7 % (37.0-80.0); Nucleated Red Blood Cells % 0.1 %; Red Blood Cells 4.44 10^6/uL (4.0-5.20); Red Cell Distribution Width 17.8 % (11.8-14.3); White Blood Cell 6.2 10^3/uL (4.4-10.8)
[2023-02-22 04:39] LABS: Chloride 96 mmol/L (98-107); Potassium 3.9 mmol/L (3.5-5.1); Sodium 135 mmol/L (136-145)
[2023-02-22 04:40] LABS: Anion Gap 10 (5-15); Calcium 8.8 mg/dL (8.7-10.4); Carbon Dioxide 29 mmol/L (20-30)
[2023-02-22 04:45] LABS: BUN/Creatinine Ratio 25.9 (10.0-20.0); Blood Urea Nitrogen 44 mg/dL (9-23); Glucose 143 mg/dL (74-106)
[2023-02-22] MEDS: fentaNYL Drip 2500mCg/250mlNS 250 ML IV SCH ×2 (05:16→16:56)
[2023-02-22] MEDS: GABAPENTIN 100 MG CAP PO SCH ×3 (05:46→22:17)
[2023-02-22] MEDS: CALCIUM ACETATE 667 MG CAP PO SCH ×3 (05:46→22:16)
[2023-02-22] MEDS: ACCU-CHEK COMFORT CURVE STRIP VI SCH ×4 (06:11→22:17)
[2023-02-22] MEDS: InsuLIN REG 1unit/0.01ml Soln (100units/ml) SC SCH ×4 (06:11→22:18)
[2023-02-22 07:28] LABS: Base Excess 7.5 mmol/L (-2.0-2.0)
[2023-02-22] MEDS: SODIUM BICARBONATE 50ML VIAL 100 ML in SOD CHL 0.45% 1,000 ML IV SCH ×2 (07:54→17:35)
[2023-02-22] MEDS: MIDAZOLAM DRIP 50 mg/50mL 50 ML IV SCH ×2 (07:55→15:15)
[2023-02-22] MEDS: PANTOPRAZOLE 40 MG/10 ML VIAL INJ IV SCH (10:13)
[2023-02-22] MEDS: ENOXAPARIN SOD 100 MG/1 ML SYRINGE SC SCH (10:14)
[2023-02-22] MEDS: CHOLECALCIFEROL (VITD3) 2,000 UNIT CAP/TAB PO SCH (10:15)
[2023-02-22] MEDS: Jevity 1.2 Cal/Fiber 1 Liter GT SCH (10:31)
[2023-02-22] MEDS ORDERED: fentaNYL Drip 2500mCg/250mlNS 250 ML IV ONE (16:51)
[2023-02-22] MEDS: NOREPINEPHRINE 8 MG/250ML KIT 250 ML IV SCH (16:54)
[2023-02-22] MEDS: ATORVASTATIN 20 MG TAB PO SCH (22:16)
[2023-02-23] VITALS (106 sets, daily range): BP systolic 81–192; BP diastolic 29–182; PULSE 77–90; RESP 18–20; TEMP 97–99; O2SAT 92–100
[2023-02-23] MEDS: PHENYLEPHRINE INJ 80 MG in SODIUM CHL 0.9% 242 ML IV SCH ×2 (00:15→23:01)
[2023-02-23] MEDS: ALBUTEROL SULF 2.5 MG/0.5ML(0.5%) NEB SOLN NEB SCH ×6 (02:19→22:28)
[2023-02-23] MEDS: IPRATROPIUM BROM 0.5 MG/2.5ML INH SOL NEB SCH ×6 (02:19→22:28)
[2023-02-23] MEDS: SODIUM BICARBONATE 50ML VIAL 100 ML in SOD CHL 0.45% 1,000 ML IV SCH ×2 (03:43→12:58)
[2023-02-23 03:58] LABS: Basophils # (auto) 0.1 10 ^3/uL (0-0.2); Basophils % (auto) 1.4 % (0.0-2.0); Eosinophils # (auto) 0.3 10 ^3/uL (0-0.8); Eosinophils % (auto) 6.2 % (0.0-7.0); Hematocrit 37.6 % (36.0-46.0); Hemoglobin 12.3 g/dL (12.2-16.2); Lymphocytes # (auto) 0.6 10 ^3/uL (0.4-5.4); Lymphocytes % (auto) 11.9 % (10.0-50.0); Mean Corpuscular Hemoglobin 28.6 pg (28.0-32.0); Mean Corpuscular Hgb Conc. 32.8 g/dL (32.0-36.0); Mean Corpuscular Volume 87.4 fL (80.0-100.0); Monocytes # (auto) 0.5 10 ^3/uL (0-1.3); Monocytes % (auto) 10.4 % (0.0-12.0); Neutrophils # (auto) 3.5 10 ^3/uL (1.6-8.6); Neutrophils % (auto) 70.1 % (37.0-80.0); Red Cell Distribution Width 17.9 % (11.8-14.3)
[2023-02-23 04:19] LABS: Alanine Aminotransferase 11 U/L (7-40); Alkaline Phosphatase 162 U/L (46-116); Anion Gap 8 (5-15); Blood Urea Nitrogen 42 mg/dL (9-23); Calcium 8.9 mg/dL (8.7-10.4); Carbon Dioxide 32 mmol/L (20-30); Chloride 97 mmol/L (98-107); Glucose 114 mg/dL (74-106); Potassium 3.6 mmol/L (3.5-5.1); Sodium 137 mmol/L (136-145)
[2023-02-23 04:20] LABS: Albumin 3.7 g/dL (3.2-4.8); Aspartate Aminotransferase 28 U/L (13-40)
[2023-02-23 04:21] LABS: Bilirubin, Total 2.5 mg/dL (0.2-1.0); Total Protein 6.5 g/dL (5.7-8.2)
[2023-02-23] MEDS: CALCIUM ACETATE 667 MG CAP PO SCH ×3 (05:49→21:36)
[2023-02-23] MEDS: GABAPENTIN 100 MG CAP PO SCH ×3 (05:49→21:36)
[2023-02-23] MEDS: fentaNYL Drip 2500mCg/250mlNS 250 ML IV SCH ×2 (05:53→17:36)
[2023-02-23] MEDS: InsuLIN REG 1unit/0.01ml Soln (100units/ml) SC SCH ×4 (06:03→21:36)
[2023-02-23] MEDS: ACCU-CHEK COMFORT CURVE STRIP VI SCH ×4 (06:03→21:36)
[2023-02-23] MEDS ORDERED: HEPARIN DRIP/D5W 100UNITS/ML 0 ML IV ONE (07:55)
[2023-02-23 08:30] LABS: Base Excess 8.5 mmol/L (-2.0-2.0)
[2023-02-23] MEDS: PANTOPRAZOLE 40 MG/10 ML VIAL INJ IV SCH (10:28)
[2023-02-23] MEDS: ENOXAPARIN SOD 100 MG/1 ML SYRINGE SC SCH (10:29)
[2023-02-23] MEDS ORDERED: levoFLOXacin 500MG 100 ML IV ONE (10:30)
[2023-02-23] MEDS: CHOLECALCIFEROL (VITD3) 2,000 UNIT CAP/TAB PO SCH (10:30)
[2023-02-23] MEDS ORDERED: SILDENAFIL CITRATE 20 MG TAB PO ONE (10:30)
[2023-02-23] MEDS: MIDAZOLAM DRIP 50 mg/50mL 50 ML IV SCH ×2 (10:35→17:35)
[2023-02-23] MEDS: NOREPINEPHRINE 8 MG/250ML KIT 250 ML IV SCH (12:51)
[2023-02-23] MEDS: SILDENAFIL CITRATE 20 MG TAB PO SCH ×3 (14:00→20:02)
[2023-02-23] MEDS: ATORVASTATIN 20 MG TAB PO SCH (21:36)
[2023-02-24] VITALS (105 sets, daily range): BP systolic 84–120; BP diastolic 30–78; PULSE 81–89; RESP 14–22; TEMP 97.3–98.4; O2SAT 92–100
[2023-02-24] MEDS: IPRATROPIUM BROM 0.5 MG/2.5ML INH SOL NEB SCH ×4 (02:29→22:00)
[2023-02-24] MEDS: ALBUTEROL SULF 2.5 MG/0.5ML(0.5%) NEB SOLN NEB SCH ×4 (02:29→22:00)
[2023-02-24 04:08] LABS: Basophils # (auto) 0 10 ^3/uL (0-0.2); Basophils % (auto) 1.1 % (0.0-2.0); Eosinophils # (auto) 0.3 10 ^3/uL (0-0.8); Eosinophils % (auto) 5.5 % (0.0-7.0); Hematocrit 37.7 % (36.0-46.0); Lymphocytes # (auto) 0.5 10 ^3/uL (0.4-5.4); Lymphocytes % (auto) 10.8 % (10.0-50.0); Mean Corpuscular Hemoglobin 28.1 pg (28.0-32.0); Mean Corpuscular Hgb Conc. 31.9 g/dL (32.0-36.0); Mean Corpuscular Volume 88.2 fL (80.0-100.0); Monocytes # (auto) 0.6 10 ^3/uL (0-1.3); Monocytes % (auto) 12.9 % (0.0-12.0); Neutrophils # (auto) 3.2 10 ^3/uL (1.6-8.6); Neutrophils % (auto) 69.7 % (37.0-80.0); Nucleated Red Blood Cells % 0.1 %; Red Blood Cells 4.28 10^6/uL (4.0-5.20); Red Cell Distribution Width 17.9 % (11.8-14.3); White Blood Cell 4.6 10^3/uL (4.4-10.8)
[2023-02-24 04:28] LABS: Alkaline Phosphatase 148 U/L (46-116); Anion Gap 8 (5-15); BUN/Creatinine Ratio 27.8 (10.0-20.0); Blood Urea Nitrogen 35 mg/dL (9-23); Calcium 9.2 mg/dL (8.7-10.4); Carbon Dioxide 32 mmol/L (20-30); Chloride 98 mmol/L (98-107); Glucose 92 mg/dL (74-106); Potassium 3.8 mmol/L (3.5-5.1); Sodium 138 mmol/L (136-145)
[2023-02-24 04:30] LABS: Albumin 3.6 g/dL (3.2-4.8); Aspartate Aminotransferase 27 U/L (13-40); Bilirubin, Total 2.5 mg/dL (0.2-1.0); Phosphorus 3.4 mg/dL (2.4-5.1); Total Protein 6.3 g/dL (5.7-8.2)
[2023-02-24 04:34] LABS: Alanine Aminotransferase < 9 U/L (7-40)
[2023-02-24] MEDS: InsuLIN REG 1unit/0.01ml Soln (100units/ml) SC SCH ×4 (05:35→21:31)
[2023-02-24] MEDS: ACCU-CHEK COMFORT CURVE STRIP VI SCH ×4 (05:35→21:31)
[2023-02-24] MEDS: GABAPENTIN 100 MG CAP PO SCH ×3 (05:38→21:30)
[2023-02-24] MEDS: CALCIUM ACETATE 667 MG CAP PO SCH ×3 (05:38→21:30)
[2023-02-24] MEDS: SILDENAFIL CITRATE 20 MG TAB PO SCH ×3 (08:24→19:48)
[2023-02-24] MEDS: MIDAZOLAM DRIP 50 mg/50mL 50 ML IV SCH ×3 (08:25→21:59)
[2023-02-24] MEDS: ENOXAPARIN SOD 100 MG/1 ML SYRINGE SC SCH (09:58)
[2023-02-24] MEDS: levoFLOXacin 500MG 100 ML IV SCH (09:58)
[2023-02-24] MEDS: PANTOPRAZOLE 40 MG/10 ML VIAL INJ IV SCH (09:58)
[2023-02-24] MEDS: CHOLECALCIFEROL (VITD3) 2,000 UNIT CAP/TAB PO SCH (09:59)
[2023-02-24] MEDS: SODIUM BICARBONATE 50ML VIAL 100 ML in SOD CHL 0.45% 1,000 ML IV SCH ×2 (10:25→21:35)
[2023-02-24] MEDS: fentaNYL Drip 2500mCg/250mlNS 250 ML IV SCH (14:44)
[2023-02-24] MEDS: Jevity 1.2 Cal/Fiber 1 Liter GT SCH (16:54)
[2023-02-24] MEDS: ATORVASTATIN 20 MG TAB PO SCH (21:30)
[2023-02-24] MEDS: PHENYLEPHRINE INJ 80 MG in SODIUM CHL 0.9% 242 ML IV SCH (21:35)
[2023-02-24] MEDS: NOREPINEPHRINE 8 MG/250ML KIT 250 ML IV SCH (21:59)
[2023-02-25] VITALS (102 sets, daily range): BP systolic 90–127; BP diastolic 31–78; PULSE 79–98; RESP 17–21; TEMP 98.2–99.5; O2SAT 84–97
[2023-02-25] MEDS: IPRATROPIUM BROM 0.5 MG/2.5ML INH SOL NEB SCH ×6 (02:11→22:38)
[2023-02-25] MEDS: ALBUTEROL SULF 2.5 MG/0.5ML(0.5%) NEB SOLN NEB SCH ×6 (02:11→22:37)
[2023-02-25 04:15] LABS: Basophils # (auto) 0 10 ^3/uL (0-0.2); Eosinophils # (auto) 0.2 10 ^3/uL (0-0.8); Eosinophils % (auto) 4.7 % (0.0-7.0); Hematocrit 36.6 % (36.0-46.0); Lymphocytes # (auto) 0.7 10 ^3/uL (0.4-5.4); Lymphocytes % (auto) 14.5 % (10.0-50.0); Mean Corpuscular Hemoglobin 28.8 pg (28.0-32.0); Mean Corpuscular Hgb Conc. 32.8 g/dL (32.0-36.0); Mean Corpuscular Volume 87.8 fL (80.0-100.0); Monocytes # (auto) 0.6 10 ^3/uL (0-1.3); Monocytes % (auto) 12.5 % (0.0-12.0); Neutrophils # (auto) 3.1 10 ^3/uL (1.6-8.6); Neutrophils % (auto) 67.3 % (37.0-80.0); Nucleated Red Blood Cells % 0.1 %; Red Blood Cells 4.16 10^6/uL (4.0-5.20); Red Cell Distribution Width 17.6 % (11.8-14.3); White Blood Cell 4.5 10^3/uL (4.4-10.8)
[2023-02-25 04:27] LABS: Albumin 3.4 g/dL (3.2-4.8); Alkaline Phosphatase 143 U/L (46-116); Anion Gap 9 (5-15); Aspartate Aminotransferase 25 U/L (13-40); BUN/Creatinine Ratio 24.6 (10.0-20.0); Bilirubin, Total 2.5 mg/dL (0.2-1.0); Blood Urea Nitrogen 29 mg/dL (9-23); Calcium 9.2 mg/dL (8.7-10.4); Carbon Dioxide 30 mmol/L (20-30); Chloride 99 mmol/L (98-107); Glucose 86 mg/dL (74-106); Potassium 3.3 mmol/L (3.5-5.1); Sodium 138 mmol/L (136-145)
[2023-02-25 04:39] LABS: Alanine Aminotransferase < 9 U/L (7-40)
[2023-02-25] MEDS: CALCIUM ACETATE 667 MG CAP PO SCH ×3 (06:19→23:20)
[2023-02-25] MEDS: GABAPENTIN 100 MG CAP PO SCH ×3 (06:19→23:20)
[2023-02-25] MEDS: ACCU-CHEK COMFORT CURVE STRIP VI SCH ×4 (06:19→23:27)
[2023-02-25] MEDS: InsuLIN REG 1unit/0.01ml Soln (100units/ml) SC SCH ×4 (06:20→22:00)
[2023-02-25] MEDS: ENOXAPARIN SOD 100 MG/1 ML SYRINGE SC SCH ×3 (08:35→22:00)
[2023-02-25] MEDS ORDERED: POTASSIUM EFFERVESENT TAB 25 MEQ PO ONE (09:15)
[2023-02-25 09:42] LABS: Base Excess 6.6 mmol/L (-2.0-2.0)
[2023-02-25] MEDS: SILDENAFIL CITRATE 20 MG TAB PO SCH ×3 (10:04→23:20)
[2023-02-25] MEDS: levoFLOXacin 500MG 100 ML IV SCH (10:05)
[2023-02-25] MEDS: fentaNYL Drip 2500mCg/250mlNS 250 ML IV SCH (10:06)
[2023-02-25] MEDS: CHOLECALCIFEROL (VITD3) 2,000 UNIT CAP/TAB PO SCH (10:06)
[2023-02-25] MEDS: PANTOPRAZOLE 40 MG/10 ML VIAL INJ IV SCH (10:06)
[2023-02-25] MEDS: FUROSEMIDE 40 MG/4 ML VIAL IV SCH (10:07)
[2023-02-25] MEDS: FREE WATER GT SCH ×3 (10:30→23:31)
[2023-02-25] MEDS: MIDAZOLAM DRIP 50 mg/50mL 50 ML IV SCH ×2 (14:00→18:01)
[2023-02-25] MEDS: METOCLOPRAMIDE 10 mg/10ml ORAL soln GT SCH (22:00)
[2023-02-25] MEDS: ATORVASTATIN 20 MG TAB PO SCH (23:20)
[2023-02-26] VITALS (106 sets, daily range): BP systolic 65–176; BP diastolic 31–104; PULSE 76–97; RESP 13–38; TEMP 93.4–99.3; O2SAT 88–97
[2023-02-26] MEDS: PHENYLEPHRINE INJ 80 MG in SODIUM CHL 0.9% 242 ML IV SCH ×2 (00:15→21:53)
[2023-02-26] MEDS: IPRATROPIUM BROM 0.5 MG/2.5ML INH SOL NEB SCH ×6 (02:34→22:46)
[2023-02-26] MEDS: ALBUTEROL SULF 2.5 MG/0.5ML(0.5%) NEB SOLN NEB SCH ×6 (02:34→22:46)
[2023-02-26 04:16] LABS: Basophils # (auto) 0.1 10 ^3/uL (0-0.2); Eosinophils # (auto) 0.2 10 ^3/uL (0-0.8); Eosinophils % (auto) 3.2 % (0.0-7.0); Hematocrit 37.8 % (36.0-46.0); Hemoglobin 12.2 g/dL (12.2-16.2); Lymphocytes # (auto) 0.7 10 ^3/uL (0.4-5.4); Lymphocytes % (auto) 13.3 % (10.0-50.0); Mean Corpuscular Hemoglobin 28.4 pg (28.0-32.0); Mean Corpuscular Hgb Conc. 32.4 g/dL (32.0-36.0); Mean Corpuscular Volume 87.7 fL (80.0-100.0); Monocytes # (auto) 0.6 10 ^3/uL (0-1.3); Monocytes % (auto) 11.1 % (0.0-12.0); Neutrophils # (auto) 3.9 10 ^3/uL (1.6-8.6); Neutrophils % (auto) 71.4 % (37.0-80.0); Nucleated Red Blood Cells % 0.1 %; Red Blood Cells 4.31 10^6/uL (4.0-5.20); Red Cell Distribution Width 17.5 % (11.8-14.3); White Blood Cell 5.4 10^3/uL (4.4-10.8)
[2023-02-26 04:28] LABS: Albumin 3.6 g/dL (3.2-4.8); Alkaline Phosphatase 154 U/L (46-116); Anion Gap 3 (5-15); Aspartate Aminotransferase 31 U/L (13-40); BUN/Creatinine Ratio 21.3 (10.0-20.0); Bilirubin, Total 2.4 mg/dL (0.2-1.0); Blood Urea Nitrogen 30 mg/dL (9-23); Calcium 9.4 mg/dL (8.7-10.4); Carbon Dioxide 35 mmol/L (20-30); Chloride 99 mmol/L (98-107); Glucose 90 mg/dL (74-106); Sodium 137 mmol/L (136-145); Total Protein 6.5 g/dL (5.7-8.2)
[2023-02-26 04:33] LABS: Alanine Aminotransferase < 9 U/L (7-40)
[2023-02-26] MEDS: FREE WATER GT SCH ×3 (05:07→17:35)
[2023-02-26] MEDS: METOCLOPRAMIDE 10 mg/10ml ORAL soln GT SCH ×3 (05:08→21:53)
[2023-02-26] MEDS: GABAPENTIN 100 MG CAP PO SCH ×3 (05:08→21:53)
[2023-02-26] MEDS: CALCIUM ACETATE 667 MG CAP PO SCH ×3 (05:08→21:53)
[2023-02-26] MEDS: InsuLIN REG 1unit/0.01ml Soln (100units/ml) SC SCH ×4 (06:24→21:58)
[2023-02-26] MEDS: ACCU-CHEK COMFORT CURVE STRIP VI SCH ×4 (06:24→21:58)
[2023-02-26 08:13] LABS: Base Excess 5.2 mmol/L (-2.0-2.0)
[2023-02-26] MEDS: SILDENAFIL CITRATE 20 MG TAB PO SCH ×3 (08:13→20:00)
[2023-02-26] MEDS: MIDAZOLAM DRIP 50 mg/50mL 50 ML IV SCH ×3 (09:29→17:32)
[2023-02-26] MEDS: PANTOPRAZOLE 40 MG/10 ML VIAL INJ IV SCH (09:29)
[2023-02-26] MEDS: FUROSEMIDE 40 MG/4 ML VIAL IV SCH (09:30)
[2023-02-26] MEDS: POTASSIUM EFFERVESENT TAB 25 MEQ PO SCH (09:30)
[2023-02-26] MEDS: levoFLOXacin 500MG 100 ML IV SCH (09:30)
[2023-02-26] MEDS: CHOLECALCIFEROL (VITD3) 2,000 UNIT CAP/TAB PO SCH (09:31)
[2023-02-26] MEDS: ENOXAPARIN SOD 100 MG/1 ML SYRINGE SC SCH ×2 (09:31→21:53)
[2023-02-26] MEDS: Jevity 1.2 Cal/Fiber 1 Liter GT SCH (10:32)
[2023-02-26] MEDS: fentaNYL Drip 2500mCg/250mlNS 250 ML IV SCH (12:06)
[2023-02-26] MEDS: NOREPINEPHRINE 8 MG/250ML KIT 250 ML IV SCH (12:07)
[2023-02-26] MEDS: ATORVASTATIN 20 MG TAB PO SCH (21:53)
[2023-02-27] VITALS (104 sets, daily range): BP systolic 87–126; BP diastolic 57–80; PULSE 83–97; RESP 19–23; TEMP 97.6–99.7; O2SAT 89–96
[2023-02-27] MEDS: FREE WATER GT SCH ×5 (00:02→23:37)
[2023-02-27] MEDS: IPRATROPIUM BROM 0.5 MG/2.5ML INH SOL NEB SCH ×6 (02:45→22:03)
[2023-02-27] MEDS: ALBUTEROL SULF 2.5 MG/0.5ML(0.5%) NEB SOLN NEB SCH ×6 (02:45→22:03)
[2023-02-27 02:53] LABS: Basophils # (auto) 0.1 10 ^3/uL (0-0.2); Basophils % (auto) 1.2 % (0.0-2.0); Eosinophils # (auto) 0.2 10 ^3/uL (0-0.8); Eosinophils % (auto) 2.9 % (0.0-7.0); Hematocrit 39.3 % (36.0-46.0); Hemoglobin 12.7 g/dL (12.2-16.2); Lymphocytes # (auto) 0.9 10 ^3/uL (0.4-5.4); Lymphocytes % (auto) 14.6 % (10.0-50.0); Mean Corpuscular Hemoglobin 28.3 pg (28.0-32.0); Mean Corpuscular Hgb Conc. 32.2 g/dL (32.0-36.0); Mean Corpuscular Volume 87.7 fL (80.0-100.0); Monocytes # (auto) 0.7 10 ^3/uL (0-1.3); Monocytes % (auto) 10.8 % (0.0-12.0); Neutrophils # (auto) 4.3 10 ^3/uL (1.6-8.6); Neutrophils % (auto) 70.5 % (37.0-80.0); Nucleated Red Blood Cells % 0.1 %; Red Blood Cells 4.48 10^6/uL (4.0-5.20); Red Cell Distribution Width 17.6 % (11.8-14.3); White Blood Cell 6.2 10^3/uL (4.4-10.8)
[2023-02-27 03:03] LABS: Albumin 3.4 g/dL (3.2-4.8); Alkaline Phosphatase 142 U/L (46-116); Anion Gap 5 (5-15); Aspartate Aminotransferase 30 U/L (13-40); BUN/Creatinine Ratio 23.7 (10.0-20.0); Bilirubin, Total 2.2 mg/dL (0.2-1.0); Blood Urea Nitrogen 31 mg/dL (9-23); Calcium 9.1 mg/dL (8.7-10.4); Carbon Dioxide 33 mmol/L (20-30); Chloride 99 mmol/L (98-107); Glucose 117 mg/dL (74-106); Potassium 3.9 mmol/L (3.5-5.1); Sodium 137 mmol/L (136-145)
[2023-02-27 03:04] LABS: Total Protein 6.2 g/dL (5.7-8.2)
[2023-02-27 03:14] LABS: Alanine Aminotransferase < 9 U/L (7-40)
[2023-02-27] MEDS: InsuLIN REG 1unit/0.01ml Soln (100units/ml) SC SCH ×4 (07:00→22:03)
[2023-02-27 07:47] LABS: Base Excess 4.3 mmol/L (-2.0-2.0)
[2023-02-27] MEDS: MIDAZOLAM DRIP 50 mg/50mL 50 ML IV SCH ×5 (08:10→23:37)
[2023-02-27] MEDS: ACCU-CHEK COMFORT CURVE STRIP VI SCH ×4 (08:22→21:57)
[2023-02-27] MEDS: CALCIUM ACETATE 667 MG CAP PO SCH ×3 (08:22→21:51)
[2023-02-27] MEDS: GABAPENTIN 100 MG CAP PO SCH ×3 (08:22→21:51)
[2023-02-27] MEDS: SILDENAFIL CITRATE 20 MG TAB PO SCH ×2 (08:22→14:00)
[2023-02-27] MEDS: METOCLOPRAMIDE 10 mg/10ml ORAL soln GT SCH ×3 (08:23→21:52)
[2023-02-27] MEDS: levoFLOXacin 500MG 100 ML IV SCH ×2 (10:28→10:30)
[2023-02-27] MEDS: CHOLECALCIFEROL (VITD3) 2,000 UNIT CAP/TAB PO SCH (10:30)
[2023-02-27] MEDS: ENOXAPARIN SOD 100 MG/1 ML SYRINGE SC SCH ×2 (10:31→21:52)
[2023-02-27] MEDS: POTASSIUM EFFERVESENT TAB 25 MEQ PO SCH (10:31)
[2023-02-27] MEDS: PANTOPRAZOLE 40 MG/10 ML VIAL INJ IV SCH (10:31)
[2023-02-27] MEDS: FUROSEMIDE 40 MG/4 ML VIAL IV SCH (10:32)
[2023-02-27] MEDS: NOREPINEPHRINE 8 MG/250ML KIT 250 ML IV SCH ×2 (11:40→21:51)
[2023-02-27] MEDS: fentaNYL Drip 2500mCg/250mlNS 250 ML IV SCH (15:30)
[2023-02-27] MEDS: Jevity 1.2 Cal/Fiber 1 Liter GT SCH (17:47)
[2023-02-27] MEDS: ATORVASTATIN 20 MG TAB PO SCH (21:51)
[2023-02-27] MEDS: PHENYLEPHRINE INJ 80 MG in SODIUM CHL 0.9% 242 ML IV SCH (23:50)
[2023-02-28] VITALS (79 sets, daily range): BP systolic 90–130; BP diastolic 57–88; PULSE 81–102; RESP 18–29; TEMP 97.2–99; O2SAT 88–97
[2023-02-28] MEDS: ALBUTEROL SULF 2.5 MG/0.5ML(0.5%) NEB SOLN NEB SCH ×4 (02:22→14:51)
[2023-02-28] MEDS: IPRATROPIUM BROM 0.5 MG/2.5ML INH SOL NEB SCH ×4 (02:22→14:51)
[2023-02-28] MEDS: fentaNYL Drip 2500mCg/250mlNS 250 ML IV SCH ×2 (03:04→14:31)
[2023-02-28] MEDS: MIDAZOLAM DRIP 50 mg/50mL 50 ML IV SCH ×3 (03:36→11:53)
[2023-02-28] MEDS: GABAPENTIN 100 MG CAP PO SCH ×2 (06:49→14:28)
[2023-02-28] MEDS: ACCU-CHEK COMFORT CURVE STRIP VI SCH ×2 (06:49→11:31)
[2023-02-28] MEDS: CALCIUM ACETATE 667 MG CAP PO SCH ×2 (06:49→14:28)
[2023-02-28] MEDS: METOCLOPRAMIDE 10 mg/10ml ORAL soln GT SCH ×2 (06:50→14:29)
[2023-02-28] MEDS: FREE WATER GT SCH ×2 (06:50→11:40)
[2023-02-28] MEDS: InsuLIN REG 1unit/0.01ml Soln (100units/ml) SC SCH ×2 (06:56→11:30)
[2023-02-28 07:53] LABS: Base Excess 6.1 mmol/L (-2.0-2.0)
[2023-02-28] MEDS: NOREPINEPHRINE 8 MG/250ML KIT 250 ML IV SCH (08:56)
[2023-02-28 10:20] LABS: Basophils # (auto) 0.1 10 ^3/uL (0-0.2); Basophils % (auto) 1.2 % (0.0-2.0); Eosinophils # (auto) 0.2 10 ^3/uL (0-0.8); Eosinophils % (auto) 2.8 % (0.0-7.0); Hematocrit 39.4 % (36.0-46.0); Hemoglobin 12.6 g/dL (12.2-16.2); Lymphocytes # (auto) 0.9 10 ^3/uL (0.4-5.4); Lymphocytes % (auto) 11.8 % (10.0-50.0); Mean Corpuscular Hemoglobin 28.1 pg (28.0-32.0); Mean Corpuscular Hgb Conc. 31.9 g/dL (32.0-36.0); Mean Corpuscular Volume 88.1 fL (80.0-100.0); Monocytes # (auto) 0.8 10 ^3/uL (0-1.3); Monocytes % (auto) 10.6 % (0.0-12.0); Neutrophils # (auto) 5.3 10 ^3/uL (1.6-8.6); Neutrophils % (auto) 73.6 % (37.0-80.0); Nucleated Red Blood Cells % 0.1 %; Red Blood Cells 4.47 10^6/uL (4.0-5.20); Red Cell Distribution Width 17.5 % (11.8-14.3); White Blood Cell 7.2 10^3/uL (4.4-10.8)
[2023-02-28 10:56] LABS: Anion Gap 8 (5-15); Carbon Dioxide 29 mmol/L (20-30); Chloride 100 mmol/L (98-107); Potassium 3.9 mmol/L (3.5-5.1); Sodium 137 mmol/L (136-145)
[2023-02-28 10:57] LABS: Calcium 9.5 mg/dL (8.5-10.1)
[2023-02-28 11:02] LABS: BUN/Creatinine Ratio 16.2 (10.0-20.0); Blood Urea Nitrogen 19 mg/dL (9-23); Glucose 136 mg/dL (74-106)
[2023-02-28] MEDS: levoFLOXacin 500MG 100 ML IV SCH (11:31)
[2023-02-28] MEDS: CHOLECALCIFEROL (VITD3) 2,000 UNIT CAP/TAB PO SCH (11:31)
[2023-02-28] MEDS: PANTOPRAZOLE 40 MG/10 ML VIAL INJ IV SCH (11:31)
[2023-02-28] MEDS: ENOXAPARIN SOD 100 MG/1 ML SYRINGE SC SCH (11:31)
[2023-02-28] MEDS: POTASSIUM EFFERVESENT TAB 25 MEQ PO SCH (11:31)
[2023-02-28] MEDS: FUROSEMIDE 40 MG/4 ML VIAL IV SCH (11:32)
== END 2023-02-28 18:00 | disposition short-term general hospital (02) | DRG 130 ==
LOC: ER 04:08 → TELE 10:14 → DOU IN ICU 22:15 → ICU WEST 02-18 15:46
PROVIDERS: ADMIT Nurse Practitioner Family; ATTEND Nurse Practitioner Acute Care
PROC: 5A0935A Assistance with Respiratory Ventilation, Less than 24 Consecutive Hours, High Flow/Velocity Cannula (ICD-10-PCS; 2023-02-16)
PROC: 5A0935A Assistance with Respiratory Ventilation, Less than 24 Consecutive Hours, High Flow/Velocity Cannula (ICD-10-PCS; 2023-02-17)
PROC: 5A1955Z Respiratory Ventilation, Greater than 96 Consecutive Hours (ICD-10-PCS; principal; 2023-02-18)
PROC: 0BH17EZ Insertion of Endotracheal Airway into Trachea, Via Natural or Artificial Opening (ICD-10-PCS; 2023-02-18)
PROC: 5A0935A Assistance with Respiratory Ventilation, Less than 24 Consecutive Hours, High Flow/Velocity Cannula (ICD-10-PCS; 2023-02-18)
PROC: 06HY33Z Insertion of Infusion Device into Lower Vein, Percutaneous Approach (ICD-10-PCS; 2023-02-18)
PROC: 4A023N6 Measurement of Cardiac Sampling and Pressure, Right Heart, Percutaneous Approach (ICD-10-PCS; 2023-02-19)
PROC: 03HY32Z Insertion of Monitoring Device into Upper Artery, Percutaneous Approach (ICD-10-PCS; 2023-02-19)
DX: J96.02 Acute respiratory failure with hypercapnia (principal); R57.0 Cardiogenic shock; I50.43 Acute on chronic combined systolic (congestive) and diastolic (congestive) heart failure; J14 Pneumonia due to Hemophilus influenzae; N17.9 Acute kidney failure, unspecified; I27.20 Pulmonary hypertension, unspecified; I13.0 Hypertensive heart and chronic kidney disease with heart failure and stage 1 through stage 4 chronic kidney disease, or unspecified chronic kidney disease; E83.39 Other disorders of phosphorus metabolism; L97.919 Non-pressure chronic ulcer of unspecified part of right lower leg with unspecified severity; E11.22 Type 2 diabetes mellitus with diabetic chronic kidney disease; J96.01 Acute respiratory failure with hypoxia; Z20.822 Contact with and (suspected) exposure to COVID-19; K76.0 Fatty (change of) liver, not elsewhere classified; E66.01 Morbid (severe) obesity due to excess calories; E87.5 Hyperkalemia; L97.929 Non-pressure chronic ulcer of unspecified part of left lower leg with unspecified severity; N39.0 Urinary tract infection, site not specified; E11.622 Type 2 diabetes mellitus with other skin ulcer; E78.5 Hyperlipidemia, unspecified; I07.1 Rheumatic tricuspid insufficiency; N18.30 Chronic kidney disease, stage 3 unspecified; J98.11 Atelectasis; Z82.49 Family history of ischemic heart disease and other diseases of the circulatory system; Z83.3 Family history of diabetes mellitus; Z88.0 Allergy status to penicillin; Z91.199 Patient's noncompliance with other medical treatment and regimen due to unspecified reason; Z68.38 Body mass index [BMI] 38.0-38.9, adult
CPT/HCPCS: 31500; 36415; 36600; 71045; 71275; 76604; 76705; 76775; 80048; 80053; 80061; 80307; 81001; 82247; 82306; 82570; 82805; 82962; 83036; 83605; 83690; 83735; 83880; 83970; 84100; 84156; 84300; 84443; 84484; 84702; 85025; 85379; 85610; 85730; 87070; 87081; 87086; 87147; 87205; 87426; 87804; 93005; 93306; 93456; 93970; 94002; 94003; 94640; C1751; C9113; G0378; J1815; J1956; J2250; J2704; J7060